=== PATIENT | female | born 1965 | race Caucasian/White ===

== ENCOUNTER 2018-04-10 15:57 | Emergency (ER) | payer MEDICAID ==
[~2018-04-10] VITALS: Ht 170.2 cm; Wt 135.0 kg
[~2018-04-10 15:57] MED LIST: HYDR-4383 PO
[2018-04-10 16:34] LABS: BASOPHILS % (AUTO) 0.3 % (0-1); EOSINOPHILS # (AUTO) 0.4 X10'3 (0-0.9); EOSINOPHILS % (AUTO) 3.1 % (0-6); HEMOGLOBIN 14.7 g/dl (12.0-16.0); LYMPHOCYTES # (AUTO) 2.1 X10'3 (1.1-4.8); LYMPHOCYTES % (AUTO) 17.8 % (21-51); MEAN CORPUSCULAR HEMOGLOBIN 27.4 PG (27.0-31.0); MEAN CORPUSCULAR VOLUME 85.8 FL (78-98); MEAN PLATELET VOLUME 9.3 FL (7.4-10.4); MONOCYTES # (AUTO) 0.7 X10'3 (0-0.9); MONOCYTES % (AUTO) 6.2 % (2-12); NEUTROPHILS # (AUTO) 8.4 X10'3 (1.8-7.7); NEUTROPHILS % (AUTO) 72.6 % (42-75); PLATELET COUNT 217 X10'3 (140-440); RED BLOOD COUNT 5.36 X10'6 (4.20-5.60); RED CELL DISTRIBUTION WIDTH 16.1 % (11.5-14.5); WHITE BLOOD COUNT 11.6 X10'3 (4.5-11.0)
[2018-04-10 16:46] LABS: URINE HCG NEGATIVE (NEG)
[2018-04-10 16:48] LABS: CLARITY,URINE CLEAR (Clear); COLOR,URINE YELLOW (Yellow); GLUCOSE, URINE NEGATIVE (Neg); KETONES,URINE NEGATIVE (Neg); LEUKOCYTE ESTERASE ,URINE NEGATIVE (Neg); NITRITES, URINE NEGATIVE (Neg); OCCULT BLOOD,URINE TRACE-INTACT (Neg); PROTEIN,URINE NEGATIVE (Neg); UA COLLECTION TYPE CLN CATCH MIDSTREAM; UROBILINOGEN,URINE 0.2 E.U/dL (0.2-1.0)
[2018-04-10 16:54] LABS: BACTERIA,URINE FEW /HPF (Neg); MUCUS STRANDS NONE SEEN /LPF (Neg); RBC,URINE 0-2 /HPF (0-2); SQUAMOUS EPITHELIAL CELL,UR MANY /LPF (FEW); WBC,URINE 0-4 /HPF (0-4)
[2018-04-10 16:58] LABS: INR 0.9 INR; PROTHROMBIN TIME 9.6 SECONDS (9.0-12.0)
[2018-04-10 17:01] LABS: ALANINE AMINOTRANSFERASE 41 U/L (12-78); ALBUMIN 3.3 G/DL (3.4-5.0); ALBUMIN/GLOBULIN RATIO 0.7 (1.1-1.5); ALKALINE PHOSPHATASE 116 IU/L (46-116); ANION GAP 11 (8-16); ASPARTATE AMINO TRANSFERASE 23 U/L (10-37); BILIRUBIN,TOTAL 0.6 MG/DL (0.1-1.0); BLOOD UREA NITROGEN 10 MG/DL (7-18); BUN/CREATININE RATIO 11.6 (6.6-38.0); CHLORIDE 101 MMOL/L (99-107); CREATININE 0.86 MG/DL (0.40-0.90); GLUCOSE 148 MG/DL (70-104); SODIUM 142 MMOL/L (135-145); TOTAL CARBON DIOXIDE 30.5 MMOL/L (24-32); TOTAL PROTEIN 7.8 G/DL (6.4-8.2); eGFR 70 ML/MIN
[2018-04-10 20:11] VITALS: BP 164/96
== END 2018-04-10 20:25 | disposition home or self-care (01) ==
LOC: ER 15:57
DX: K42.9 Umbilical hernia without obstruction or gangrene (principal); I10 Essential (primary) hypertension; F14.10 Cocaine abuse, uncomplicated; J45.909 Unspecified asthma, uncomplicated; Z90.49 Acquired absence of other specified parts of digestive tract; Z98.51 Tubal ligation status
CPT/HCPCS: 36415; 80053; 81001; 81025; 85025; 85610; 99284

== ENCOUNTER 2019-06-25 15:35 | Inpatient (IN) | payer MEDICAID ==
[~2019-06-25] VITALS: Ht 170.2 cm; Wt 117.6 kg
[~2019-06-25 15:35] MED LIST changes: +DOBUTamine/D5W 500mg/250ml premix IV ONE; +epiNEPHrine 0.1mg/ml 10ml syringe ONE; +etomidate 2mg/ml inj. ONE; +sod chloride 0.9% 10ml flush syringe IV ONE
[2019-06-25] MEDS ORDERED: furosemide 40mg/4ml inj IV ONE (15:50)
[2019-06-25] MEDS ORDERED: albuterol 2.5 MG/3 ML nebule CONTNEB PRN (15:50)
--- NOTE | 2019-06-25 16:01 | NUR ---
THOM VEGA, SISTER'S PHONE NUMBER [phone]
[2019-06-25 16:09] LABS: BASOPHILS # (AUTO) 0.1 X10'3 (0-0.2); BASOPHILS % (AUTO) 0.3 % (0-1); EOSINOPHILS % (AUTO) 0 % (0-6); HEMATOCRIT 45.6 % (35.0-45.0); HEMOGLOBIN 14.9 g/dl (12.0-16.0); LYMPHOCYTES # (AUTO) 0.5 X10'3 (1.1-4.8); LYMPHOCYTES % (AUTO) 1.7 % (21-51); MEAN CORPUSCULAR HEMOGLOBIN 28.4 PG (27.0-31.0); MEAN CORPUSCULAR HGB CONC 32.8 g/dL (33.0-36.5); MEAN CORPUSCULAR VOLUME 86.6 FL (78-98); MEAN PLATELET VOLUME 8.8 FL (7.4-10.4); MONOCYTES # (AUTO) 0.5 X10'3 (0-0.9); MONOCYTES % (AUTO) 1.5 % (2-12); NEUTROPHILS # (AUTO) 29.5 X10'3 (1.8-7.7); NEUTROPHILS % (AUTO) 96.5 % (42-75); PLATELET COUNT 199 X10'3 (140-440); RED BLOOD COUNT 5.27 X10'6 (4.20-5.60); RED CELL DISTRIBUTION WIDTH 15.7 % (11.5-14.5)
[2019-06-25 16:14] LABS: WHITE BLOOD COUNT 30.6 X10'3 (4.5-11.0)
--- NOTE | 2019-06-25 16:14 | NUR ---
Lab called a critical WBC of 30.6. Notified Dr Jenkins of result.
[2019-06-25 16:21] LABS: ABG BASE EXCESS 3.1 mmol/L (-2.0-3.0); ABG HCO3 31.7 mmol/L (22.0-26.0); ABG PCO2 (T) 65.5 mmHg (35.0-45.0); ABG PH (T) 7.303 (7.350-7.450); ABG PO2 (T) 68.4 mmHg (83-108); ALLEN'S TEST Positive; FCOHb 2.2 % (0.5-1.5); FLOW 6 L/min; FMetHb 0.2 % (0.3-1.12); FO2Hb 89.8 % (94-100); RESPIRATORY RATE (OBSERVED) 36 b/min; TOTAL HEMOGLOBIN 15.8 G/dl (12.0-16.0)
--- NOTE | 2019-06-25 16:23 | NUR ---
Dr Jenkins at bedside talking with patient's family. Patient is becoming more combative and verbal. Patient continues to be confused.
[2019-06-25 16:24] LABS: PARTIAL THROMBOPLASTIN TIME 31 SECONDS (22-32)
[2019-06-25 16:27] LABS: ALANINE AMINOTRANSFERASE 72 U/L (12-78); ALBUMIN/GLOBULIN RATIO 0.7 (1.1-1.5); ALKALINE PHOSPHATASE 93 IU/L (46-116); ANION GAP 8 (8-16); ASPARTATE AMINO TRANSFERASE 62 U/L (10-37); BILIRUBIN,TOTAL 1.8 MG/DL (0.1-1.0); BLOOD UREA NITROGEN 12 MG/DL (7-18); CALCIUM 8.6 MG/DL (8.5-10.1); CHLORIDE 97 MMOL/L (99-107); GLUCOSE 75 MG/DL (70-104); POTASSIUM 3.4 MMOL/L (3.5-5.1); SODIUM 136 MMOL/L (135-145); TOTAL CARBON DIOXIDE 31.2 MMOL/L (24-32); TOTAL PROTEIN 7.5 G/DL (6.4-8.2); eGFR 58 ML/MIN
[2019-06-25] MEDS ORDERED: succinylcholine 20mg/ml inj IV ONE ×2 (16:29→22:15)
[2019-06-25] MEDS ORDERED: normal saline 1000ML IV soln IV ONE (16:40)
[2019-06-25 16:44] LABS: ANISOCYTOSIS 1+; PLATELET ESTIMATE NORMAL; TOTAL CELLS COUNTED 100; TOXIC VACUOLATION 1+
--- NOTE | 2019-06-25 17:14 | NUR ---
Patient resting quietly. Family at bedside.
--- NOTE | 2019-06-25 17:57 | NUR ---
Patient continues to not know what is going on. Patient is not able to maintain her airway and is 75% on room air. Patient appears aggitated, moving around in bed. Unable to answer questions appropriately. Patient's family aware of need for patient to be intubated.
[2019-06-25] MEDS ORDERED: EPINEPHRINE IV SCH (18:20)
[2019-06-25] MEDS ORDERED: NORMAL SALINE IV SCH (18:20)
--- NOTE | 2019-06-25 18:44 | NUR ---
see downtime chart for CPR record.
[2019-06-25] MEDS ORDERED: propofol 1000mg/100ml bottle 100 ML IV ONE (18:48)
[2019-06-25 19:11] LABS: ABG BASE EXCESS -3.2 mmol/L (-2.0-3.0); ABG HCO3 25.4 mmol/L (22.0-26.0); ABG OXYGEN SATURATION 93.1 % (95-98); ABG PCO2 (T) 69.7 mmHg (35.0-45.0); ABG PH (T) 7.197 (7.350-7.450); FCOHb 1.8 % (0.5-1.5); FMetHb 0.2 % (0.3-1.12); FO2Hb 91.2 % (94-100); MINUTE VOLUME 8 L/min; PATIENT TEMPERATURE 40.3; PEEP 5 cm H2O; RESPIRATORY RATE 12 b/min; RESPIRATORY RATE (OBSERVED) 14 b/min; TIDAL VOLUME 450 mL; TOTAL HEMOGLOBIN 15.1 G/dl (12.0-16.0)
[2019-06-25] MEDS ORDERED: MIDAZolam 5mg/ml 2ml vial IV ONE (19:45)
[2019-06-25 19:46] LABS: URINE AMPHETAMINE SCREEN POSITIVE (Neg); URINE BARBITUATE SCREEN NEGATIVE (Neg); URINE BENZODIAZEPINES SCREEN NEGATIVE (Neg); URINE CANNABINOID SCREEN NEGATIVE (Neg); URINE COCAINE SCREEN NEGATIVE (Neg); URINE METHADONE SCREEN NEGATIVE (Neg); URINE OPIATE SCREEN NEGATIVE (Neg); URINE PHENCYCLIDINE SCREEN NEGATIVE (Neg)
[2019-06-25] MEDS ORDERED: acetaminophen 325mg rectal suppository RC ONE (19:50)
[2019-06-25] MEDS: DOPamine 400mg/D5W 250ml 250 ML IV SCH ×2 (19:54→21:18)
[2019-06-25] MEDS ORDERED: acetaminophen 650mg rectal suppository RC ONE (19:55)
[2019-06-25] MEDS: cefepime 2g/NS 100ml ADVANTAGE 100 ML IV SCH ×2 (20:07→20:38)
[2019-06-25] MEDS ORDERED: magnesium 2GM in 50ml NS 50 ML IV PRN (20:15)
[2019-06-25] MEDS ORDERED: potassium Cl 20 mEq SR tablet PO PRN ×2 (20:15)
[2019-06-25] MEDS: K, MAG and/or Phos replacement - Verify level? MC SCH (20:15)
[2019-06-25] MEDS ORDERED: magnesium 4gm in 100ml NS 100 ML IV PRN (20:15)
[2019-06-25] MEDS ORDERED: sodium phosphate inj. 30 MMOL in dextrose 5%-water 250 ML IV PRN (20:15)
[2019-06-25] MEDS ORDERED: Neutra Phos packet PO PRN (20:15)
[2019-06-25] MEDS ORDERED: sodium phosphate inj. 15 MMOL in dextrose 5%-water 150 ML IV PRN (20:15)
[2019-06-25] MEDS ORDERED: magnesium hydroxide 30ml (MOM) UD suspension PO PRN (20:15)
[2019-06-25] MEDS ORDERED: magnesium Cl slow-release 64mg tablet PO PRN (20:15)
[2019-06-25] MEDS ORDERED: acetaminophen 325mg tablet PO PRN (20:15)
[2019-06-25] MEDS: pantoprazole 40 MG vial IV SCH (20:15)
[2019-06-25 21:15] LABS: OXYGEN SATURATION (MIXED VEN) 69.9 % (60-80); PO2 MIXED VENOUS (TEMP COR) 40.9 mmHg (35-46)
[2019-06-25 21:15] LABS: ABG BASE EXCESS -0.4 mmol/L (-2.0-3.0); ABG HCO3 25.5 mmol/L (22.0-26.0); ABG PCO2 (T) 50.8 mmHg (35.0-45.0); ABG PH (T) 7.328 (7.350-7.450); ABG PO2 (T) 65.4 mmHg (83-108); FCOHb 1.7 % (0.5-1.5); FMetHb 0.2 % (0.3-1.12); FO2Hb 88.3 % (94-100); MINUTE VOLUME 13 L/min; PATIENT TEMPERATURE 39.2; PEEP 8 cm H2O; RESPIRATORY RATE 20 b/min; RESPIRATORY RATE (OBSERVED) 23 b/min; TIDAL VOLUME 500 mL; TOTAL HEMOGLOBIN 14.4 G/dl (12.0-16.0)
[2019-06-25 21:23] LABS: PARTIAL THROMBOPLASTIN TIME 32 SECONDS (22-32)
[2019-06-25 21:37] LABS: MAGNESIUM 1.5 MG/DL (1.5-2.4); PHOSPHORUS 3.7 MG/DL (2.3-4.5)
[2019-06-25 22:00] VITALS: BP 91/53
[2019-06-25] MEDS ORDERED: etomidate 2mg/ml inj. IV ONE (22:15)
[2019-06-25] MEDS ORDERED: acetaminophen 1,000mg/100ml IV 100 ML IV ONE (22:30)
[2019-06-25 22:42] LABS: BASOPHILS # (AUTO) 0.1 X10'3 (0-0.2); BASOPHILS % (AUTO) 0.2 % (0-1); EOSINOPHILS % (AUTO) 0 % (0-6); HEMATOCRIT 45.6 % (35.0-45.0); HEMOGLOBIN 14.7 g/dl (12.0-16.0); LYMPHOCYTES # (AUTO) 0.5 X10'3 (1.1-4.8); LYMPHOCYTES % (AUTO) 1.6 % (21-51); MEAN CORPUSCULAR HEMOGLOBIN 27.9 PG (27.0-31.0); MEAN CORPUSCULAR HGB CONC 32.2 g/dL (33.0-36.5); MEAN CORPUSCULAR VOLUME 86.6 FL (78-98); MEAN PLATELET VOLUME 8.9 FL (7.4-10.4); MONOCYTES # (AUTO) 0.5 X10'3 (0-0.9); MONOCYTES % (AUTO) 1.7 % (2-12); NEUTROPHILS # (AUTO) 27.2 X10'3 (1.8-7.7); NEUTROPHILS % (AUTO) 96.5 % (42-75); PLATELET COUNT 226 X10'3 (140-440); RED BLOOD COUNT 5.27 X10'6 (4.20-5.60); RED CELL DISTRIBUTION WIDTH 15.6 % (11.5-14.5)
[2019-06-25 22:52] LABS: ALANINE AMINOTRANSFERASE 164 U/L (12-78); ALBUMIN 2.6 G/DL (3.4-5.0); ALBUMIN/GLOBULIN RATIO 0.6 (1.1-1.5); ALKALINE PHOSPHATASE 88 IU/L (46-116); ANION GAP 14 (8-16); ASPARTATE AMINO TRANSFERASE 185 U/L (10-37); BLOOD UREA NITROGEN 21 MG/DL (7-18); BUN/CREATININE RATIO 10.7 (6.6-38.0); CALCIUM 7.5 MG/DL (8.5-10.1); CHLORIDE 97 MMOL/L (99-107); CREATININE 1.96 MG/DL (0.40-0.90); GLUCOSE 110 MG/DL (70-104); POTASSIUM 3.2 MMOL/L (3.5-5.1); SODIUM 137 MMOL/L (135-145); TOTAL CARBON DIOXIDE 26.1 MMOL/L (24-32); TOTAL PROTEIN 6.8 G/DL (6.4-8.2); WHITE BLOOD COUNT 28.1 X10'3 (4.5-11.0); eGFR 27 ML/MIN
[2019-06-25 22:53] LABS: PLATELET COUNT 226 X10'3 (140-440)
[2019-06-25 22:58] LABS: PARTIAL THROMBOPLASTIN TIME 32 SECONDS (22-32)
[2019-06-25 23:00] VITALS: BP 147/77
--- NOTE | 2019-06-25 23:00 | NUR ---
Patient in room CICU 2013. I have received report from JODIE Escobedo and had the opportunity to ask questions and assume patient care.
[2019-06-25 23:01] LABS: MAGNESIUM 1.4 MG/DL (1.5-2.4); PHOSPHORUS 4.1 MG/DL (2.3-4.5)
[2019-06-25 23:14] LABS: HEMOGLOBIN A1C 7.1 % (4.5-6.2)
[2019-06-26] VITALS (23 sets, daily range): BP systolic 91–140; BP diastolic 47–75
--- NOTE | 2019-06-26 00:15 | NUR ---
Spoke with JAKE Barnard, received orders to hold off on tube feeding at this time.
[2019-06-26 00:46] LABS: CLARITY,URINE SLIGHTLY CLOUDY (Clear); COLOR,URINE YELLOW (Yellow); GLUCOSE, URINE NEGATIVE (Neg); KETONES,URINE NEGATIVE (Neg); LEUKOCYTE ESTERASE ,URINE NEGATIVE (Neg); NITRITES, URINE NEGATIVE (Neg); OCCULT BLOOD,URINE LARGE (Neg); PH,URINE 7.5 (4.8-8.0); PROTEIN,URINE 100 mg/dl (Neg); UROBILINOGEN,URINE 0.2 E.U/dL (0.2-1.0)
[2019-06-26 00:52] LABS: UA COLLECTION TYPE FOLEY CATH
[2019-06-26 00:56] LABS: AMORPHOUS PHOSPHATES 2+; BACTERIA,URINE FEW /HPF (Neg); MUCUS STRANDS MODERATE /LPF (Neg); SQUAMOUS EPITHELIAL CELL,UR MODERATE /LPF (FEW); WBC,URINE 0-4 /HPF (0-4)
[2019-06-26] MEDS: hydrocortisone sod succ/PF 100mg/2ml inj. IV SCH ×4 (02:59→20:24)
[2019-06-26 03:18] LABS: BASOPHILS # (AUTO) 0.1 X10'3 (0-0.2); BASOPHILS % (AUTO) 0.3 % (0-1); EOSINOPHILS % (AUTO) 0 % (0-6); HEMATOCRIT 46.5 % (35.0-45.0); HEMOGLOBIN 15.1 g/dl (12.0-16.0); LYMPHOCYTES # (AUTO) 0.4 X10'3 (1.1-4.8); LYMPHOCYTES % (AUTO) 1.8 % (21-51); MEAN CORPUSCULAR HEMOGLOBIN 28.1 PG (27.0-31.0); MEAN CORPUSCULAR HGB CONC 32.6 g/dL (33.0-36.5); MEAN CORPUSCULAR VOLUME 86.5 FL (78-98); MONOCYTES # (AUTO) 0.5 X10'3 (0-0.9); MONOCYTES % (AUTO) 2.4 % (2-12); NEUTROPHILS # (AUTO) 21.3 X10'3 (1.8-7.7); NEUTROPHILS % (AUTO) 95.5 % (42-75); PLATELET COUNT 216 X10'3 (140-440); RED BLOOD COUNT 5.38 X10'6 (4.20-5.60); RED CELL DISTRIBUTION WIDTH 15.9 % (11.5-14.5); WHITE BLOOD COUNT 22.3 X10'3 (4.5-11.0)
[2019-06-26 03:21] LABS: PARTIAL THROMBOPLASTIN TIME 33 SECONDS (22-32)
[2019-06-26 03:23] LABS: ALANINE AMINOTRANSFERASE 292 U/L (12-78); ALBUMIN 2.5 G/DL (3.4-5.0); ALBUMIN/GLOBULIN RATIO 0.6 (1.1-1.5); ALKALINE PHOSPHATASE 84 IU/L (46-116); ANION GAP 11 (8-16); ASPARTATE AMINO TRANSFERASE 472 U/L (10-37); BILIRUBIN,TOTAL 1.8 MG/DL (0.1-1.0); BLOOD UREA NITROGEN 28 MG/DL (7-18); BUN/CREATININE RATIO 12.8 (6.6-38.0); CALCIUM 7.5 MG/DL (8.5-10.1); CHLORIDE 98 MMOL/L (99-107); CREATININE 2.18 MG/DL (0.40-0.90); GLUCOSE 103 MG/DL (70-104); POTASSIUM 3.2 MMOL/L (3.5-5.1); SODIUM 135 MMOL/L (135-145); TOTAL CARBON DIOXIDE 26.1 MMOL/L (24-32); TOTAL PROTEIN 6.5 G/DL (6.4-8.2); eGFR 24 ML/MIN
[2019-06-26 03:29] LABS: MAGNESIUM 1.4 MG/DL (1.5-2.4); PHOSPHORUS 4.5 MG/DL (2.3-4.5)
[2019-06-26] MEDS: potassium Cl 20mEq/100mL bag 100 ML IV PRN ×2 (03:38→04:33)
[2019-06-26 03:50] LABS: ABG BASE EXCESS -3.7 mmol/L (-2.0-3.0); ABG HCO3 20.9 mmol/L (22.0-26.0); ABG OXYGEN SATURATION 94.7 % (95-98); ABG PCO2 (T) 40.5 mmHg (35.0-45.0); ABG PO2 (T) 85.7 mmHg (83-108); FCOHb 0.8 % (0.5-1.5); FMetHb 0.2 % (0.3-1.12); FO2Hb 93.8 % (94-100); MINUTE VOLUME 11 L/min; PATIENT TEMPERATURE 39.4; PEEP 8 cm H2O; RESPIRATORY RATE 20 b/min; RESPIRATORY RATE (OBSERVED) 21 b/min; TIDAL VOLUME 500 mL; TOTAL HEMOGLOBIN 15.8 G/dl (12.0-16.0)
[2019-06-26] MEDS: acetaminophen 1,000mg/100ml IV 100 ML IV PRN ×2 (04:46→14:35)
[2019-06-26] MEDS: NORepinephrine 8mg/ 250ml NS 250 ML IV PRN ×2 (05:30→11:54)
--- NOTE | 2019-06-26 06:39 | NUR ---
Problems reprioritized. Patient report given, questions answered & plan of care reviewed with JODIE Jarrell.
[2019-06-26] MEDS: K, MAG and/or Phos replacement - Verify level? MC SCH (08:00)
[2019-06-26 08:21] LABS: BASOPHILS % (AUTO) 0.2 % (0-1); EOSINOPHILS % (AUTO) 0 % (0-6); HEMATOCRIT 47.2 % (35.0-45.0); HEMOGLOBIN 15.3 g/dl (12.0-16.0); LYMPHOCYTES # (AUTO) 0.4 X10'3 (1.1-4.8); LYMPHOCYTES % (AUTO) 1.4 % (21-51); MEAN CORPUSCULAR HEMOGLOBIN 27.9 PG (27.0-31.0); MEAN CORPUSCULAR HGB CONC 32.5 g/dL (33.0-36.5); MEAN CORPUSCULAR VOLUME 85.9 FL (78-98); MEAN PLATELET VOLUME 9.3 FL (7.4-10.4); MONOCYTES # (AUTO) 0.6 X10'3 (0-0.9); MONOCYTES % (AUTO) 2.2 % (2-12); NEUTROPHILS # (AUTO) 24.3 X10'3 (1.8-7.7); NEUTROPHILS % (AUTO) 96.2 % (42-75); PLATELET COUNT 235 X10'3 (140-440); RED BLOOD COUNT 5.49 X10'6 (4.20-5.60)
[2019-06-26 08:23] LABS: PLATELET COUNT 235 X10'3 (140-440); WHITE BLOOD COUNT 25.3 X10'3 (4.5-11.0)
[2019-06-26] MEDS: enoxaparin 40mg/0.4ml syringe SUBCUT SCH ×2 (08:28→20:26)
[2019-06-26] MEDS: pantoprazole 40 MG vial IV SCH (08:28)
[2019-06-26] MEDS: cefepime 2g/NS 100ml ADVANTAGE 100 ML IV SCH ×2 (08:28→18:54)
[2019-06-26 08:32] LABS: AMMONIA < 10 UMOL/L (11-32)
[2019-06-26 08:35] LABS: ALANINE AMINOTRANSFERASE 355 U/L (12-78); ALBUMIN 2.4 G/DL (3.4-5.0); ALBUMIN/GLOBULIN RATIO 0.6 (1.1-1.5); ALKALINE PHOSPHATASE 87 IU/L (46-116); ANION GAP 14 (8-16); ASPARTATE AMINO TRANSFERASE 652 U/L (10-37); BILIRUBIN,TOTAL 1.7 MG/DL (0.1-1.0); BLOOD UREA NITROGEN 31 MG/DL (7-18); BUN/CREATININE RATIO 13.9 (6.6-38.0); CALCIUM 7.5 MG/DL (8.5-10.1); CHLORIDE 99 MMOL/L (99-107); CREATININE 2.23 MG/DL (0.40-0.90); GLUCOSE 139 MG/DL (70-104); MAGNESIUM 1.6 MG/DL (1.5-2.4); POTASSIUM 3.8 MMOL/L (3.5-5.1); SODIUM 136 MMOL/L (135-145); TOTAL CARBON DIOXIDE 23.2 MMOL/L (24-32); TOTAL PROTEIN 6.5 G/DL (6.4-8.2); eGFR 23 ML/MIN
[2019-06-26 08:40] LABS: ANISOCYTOSIS 2+; MICROCYTOSIS 1+; PLATELET ESTIMATE NORMAL; TOTAL CELLS COUNTED 100
[2019-06-26 08:41] LABS: LARGE PLATELETS FEW
--- NOTE | 2019-06-26 08:45 | NUR ---
Ice removed from under armpits and groin.
[2019-06-26 08:59] LABS: LACTIC SEPSIS 1.4 MMOL/L (0.4-2.0)
[2019-06-26 09:16] LABS: PARTIAL THROMBOPLASTIN TIME 32 SECONDS (22-32)
--- NOTE | 2019-06-26 09:16 | NUR ---
3 rings given to daughter to take home, home meds verified.
[2019-06-26] MEDS ORDERED: GLIP5TAB13 PO (09:40)
[2019-06-26] MEDS ORDERED: FURO20TA4 PO (09:53)
[2019-06-26] MEDS ORDERED: AMLO5TAB4 PO (09:53)
[2019-06-26] MEDS ORDERED: AMLO5TAB PO (09:53)
[2019-06-26] MEDS ORDERED: LISI1TAB28 PO (09:53)
[2019-06-26] MEDS ORDERED: GLIP5TAB3 PO (09:53)
--- NOTE | 2019-06-26 11:05 | NUR ---
Initial: Pt admit with AMS, resp fail, LLE cellulitis, and sepsis with hx illicit drug use. Pt intubated. TF recommendations below for if prolonged intubation and to receive nutrition support. Recommendations are calculated to meet 100% of patient's estimated nutrient needs using AdjBW. Pt with low Kapil of 10. Per physical assessment pt with bilat gen 2+ edema however skin intact. Will continue to follow closely. Recommendations: 1) If to receive TF, continuous Vital High Protein with goal rate of 90 mL/hr 2) If above, additional 200 mL water flush Q4H 3) If above, prealbumin q M/TH; daily weights 4) PO diet advancement to heart healthy CHO controlled as medically indicated after extubation 5) DM education once stable; A1c 7.1 Addendum: 06/26/19 at [address] Amended: Links added.
[2019-06-26 11:14] LABS: CLARITY,URINE CLOUDY (Clear); COLOR,URINE YELLOW (Yellow); GLUCOSE, URINE NEGATIVE (Neg); KETONES,URINE TRACE mg/dl (Neg); LEUKOCYTE ESTERASE ,URINE NEGATIVE (Neg); NITRITES, URINE NEGATIVE (Neg); OCCULT BLOOD,URINE LARGE (Neg); PROTEIN,URINE 100 mg/dl (Neg); UROBILINOGEN,URINE 0.2 E.U/dL (0.2-1.0)
[2019-06-26] MEDS ORDERED: BUDE10.2 PO (11:14)
[2019-06-26] MEDS ORDERED: ALBU18HF2 PO (11:14)
[2019-06-26] MEDS ORDERED: IPRA3AMP31 NEB (11:14)
[2019-06-26 11:26] LABS: UA COLLECTION TYPE FOLEY CATH
[2019-06-26 11:31] LABS: BACTERIA,URINE FEW /HPF (Neg); MUCUS STRANDS FEW /LPF (Neg); SQUAMOUS EPITHELIAL CELL,UR FEW /LPF (FEW); WBC,URINE 0-4 /HPF (0-4)
[2019-06-26 11:32] LABS: HYALINE CASTS 0-3 /LPF (NEGATIVE); WBC CASTS 0-3 /LPF (NEGATIVE)
[2019-06-26 11:35] LABS: CREATINE KINASE 12652 U/L (26-192)
[2019-06-26 11:49] LABS: UA EOSINOPHILS NO EOS /HPF
--- NOTE | 2019-06-26 12:05 | NUR ---
Pt daughter reaffirmed that she wants limited visitors, and only the first three people on her contact list are allowed to come in. Multiple other family members have called for information. I have told them to call the Daughter, but we are not to give out her phone number. The list of people we can give information to is in the chart
--- NOTE | 2019-06-26 12:05 | NUR ---
pt repacked with ice as her temp was back up to 38.2
--- NOTE | 2019-06-26 13:00 | NUR ---
cooling blanket placed under pt as well as on top of pt
--- NOTE | 2019-06-26 15:22 | NUR ---
Telephone call to Rafaela, pt daughter, to get information for MRI screening form. No answer. Left message to call back
--- NOTE | 2019-06-26 15:45 | NUR ---
Call from pt daughter, Rafaela. I was able to get the information for the MRI form. Pt to go to MRI and CT
--- NOTE | 2019-06-26 16:00 | NUR ---
Pt transferred to [facility] from ICU bed. Pt versed and fentanyl on dial-a-flow's. Pt on portable monitor. RN, and RT with patient. Pt will go to CT when MRI is complete.
--- NOTE | 2019-06-26 18:25 | NUR ---
Pt returned from MRI/CT. Placed back on bedside monitor.
--- NOTE | 2019-06-26 18:30 | NUR ---
Patient in room CICU 2012. I have received report from Wesly FELICIANO and had the opportunity to ask questions and assume patient care. Patient back from MRI and CT, placed onto Misha-bed, connected to monitor. Patient Assessed at this time. Will continue to monitor.
--- NOTE | 2019-06-26 19:00 | NUR ---
Patients skin appearing to be mottling. Mamadou Wu ASSISTED LIVING NURSING DIRECTOR at bedside and aware.
[2019-06-26] MEDS: midazolam 100mg in NS 100ml 100 ML IV PRN (19:17)
[2019-06-26] MEDS: FENTANYL-0.9 % NACL/PF 100 ML IV PRN (19:18)
[2019-06-26] MEDS: lactobacillus rhamnosus 10,000 MMU CELLS/CAPSULE PO SCH (20:24)
--- NOTE | 2019-06-26 21:00 | NUR ---
Patients BP decreasing at this time. Levo restarted. Will continue to monitor.
[2019-06-27] VITALS (24 sets, daily range): BP systolic 93–150; BP diastolic 49–75
[2019-06-27] MEDS: cefepime 2g/NS 100ml ADVANTAGE 100 ML IV SCH ×3 (00:02→16:31)
--- NOTE | 2019-06-27 01:13 | NUR ---
No changes in condition at this time. Will continue to monitor closely.
[2019-06-27] MEDS: hydrocortisone sod succ/PF 100mg/2ml inj. IV SCH ×4 (02:00→20:29)
[2019-06-27 02:59] LABS: BASOPHILS % (AUTO) 0.1 % (0-1); EOSINOPHILS % (AUTO) 0.2 % (0-6); HEMATOCRIT 46.4 % (35.0-45.0); HEMOGLOBIN 15.1 g/dl (12.0-16.0); LYMPHOCYTES # (AUTO) 0.3 X10'3 (1.1-4.8); LYMPHOCYTES % (AUTO) 1.9 % (21-51); MEAN CORPUSCULAR HEMOGLOBIN 27.8 PG (27.0-31.0); MEAN CORPUSCULAR HGB CONC 32.4 g/dL (33.0-36.5); MEAN CORPUSCULAR VOLUME 85.9 FL (78-98); MEAN PLATELET VOLUME 9.2 FL (7.4-10.4); MONOCYTES # (AUTO) 0.6 X10'3 (0-0.9); MONOCYTES % (AUTO) 3.6 % (2-12); NEUTROPHILS % (AUTO) 94.2 % (42-75); PLATELET COUNT 241 X10'3 (140-440); RED CELL DISTRIBUTION WIDTH 16.1 % (11.5-14.5); WHITE BLOOD COUNT 18.1 X10'3 (4.5-11.0)
[2019-06-27 03:13] LABS: ALANINE AMINOTRANSFERASE 480 U/L (12-78); ALBUMIN/GLOBULIN RATIO 0.4 (1.1-1.5); ALKALINE PHOSPHATASE 89 IU/L (46-116); ANION GAP 12 (8-16); ASPARTATE AMINO TRANSFERASE 714 U/L (10-37); BLOOD UREA NITROGEN 38 MG/DL (7-18); CALCIUM 7.3 MG/DL (8.5-10.1); CHLORIDE 100 MMOL/L (99-107); CREATININE 1.46 MG/DL (0.40-0.90); GLUCOSE 177 MG/DL (70-104); MAGNESIUM 2.1 MG/DL (1.5-2.4); PARTIAL THROMBOPLASTIN TIME 34 SECONDS (22-32); PHOSPHORUS 4.7 MG/DL (2.3-4.5); POTASSIUM 3.3 MMOL/L (3.5-5.1); SODIUM 135 MMOL/L (135-145); TOTAL CARBON DIOXIDE 23.1 MMOL/L (24-32); TOTAL PROTEIN 6.5 G/DL (6.4-8.2); eGFR 38 ML/MIN
[2019-06-27] MEDS: acetaminophen 1,000mg/100ml IV 100 ML IV PRN (03:51)
[2019-06-27] MEDS: potassium Cl 20mEq/100mL bag 100 ML IV PRN ×3 (03:52→17:51)
[2019-06-27 04:35] LABS: ABG BASE EXCESS -2.4 mmol/L (-2.0-3.0); ABG HCO3 22.5 mmol/L (22.0-26.0); ABG OXYGEN SATURATION 93.9 % (95-98); ABG PH (T) 7.361 (7.350-7.450); ABG PO2 (T) 74.4 mmHg (83-108); FCOHb 0.7 % (0.5-1.5); FMetHb 0.1 % (0.3-1.12); FO2Hb 93.1 % (94-100); MINUTE VOLUME 12 L/min; PEEP 8 cm H2O; RESPIRATORY RATE 20 b/min; RESPIRATORY RATE (OBSERVED) 21 b/min; TIDAL VOLUME 500 mL; TOTAL HEMOGLOBIN 15.4 G/dl (12.0-16.0)
--- NOTE | 2019-06-27 06:27 | NUR ---
Problems reprioritized. Patient report given, questions answered & plan of care reviewed with Elisha FELICIANO.
--- NOTE | 2019-06-27 06:30 | NUR ---
Patient in room CICU 2013. I have received report from Maria Ines FELICIANO and had the opportunity to ask questions and assume patient care.
[2019-06-27] MEDS: enoxaparin 40mg/0.4ml syringe SUBCUT SCH ×2 (07:57→20:29)
[2019-06-27] MEDS: pantoprazole 40 MG vial IV SCH (07:57)
[2019-06-27] MEDS: lactobacillus rhamnosus 10,000 MMU CELLS/CAPSULE PO SCH ×2 (07:57→20:29)
[2019-06-27] MEDS: K, MAG and/or Phos replacement - Verify level? MC SCH (08:00)
[2019-06-27] MEDS ORDERED: Neutra Phos packet NG PRN (12:31)
[2019-06-27] MEDS ORDERED: magnesium hydroxide 30ml (MOM) UD suspension NG PRN (12:31)
[2019-06-27] MEDS ORDERED: potassium Cl 20 mEq SR tablet NG PRN ×2 (12:31)
--- NOTE | 2019-06-27 12:33 | NUR ---
TF Consult: NGTF to start today per MD. EN recs below given intubation needs. Will monitor for EN tolerance. Initial: Pt admit with AMS, resp fail, LLE cellulitis, and sepsis with hx illicit drug use. Pt intubated. TF recommendations below for if prolonged intubation and to receive nutrition support. Recommendations are calculated to meet 100% of patient's estimated nutrient needs using Adj IBW. Pt with low Kapil of 10. Per physical assessment pt w/ bilateral gen 2+ edema however skin intact. Will continue to follow closely. Recommendations: 1) Continuous NGTF per MD using Vital High Protein at 95mL/hr goal; to provide 2280ml fluid, 1915ml free water, 2280kcals, and 200g protein. Initiate at 20ml/hr and advance 20ml Q8 to goal as tolerated. 2) additional water flush per computer terminal operator; Na 135 3) prealbumin q /; daily weights 4) routine bowel care 5) PO diet advancement to heart healthy CHO controlled as medically indicated after extubation 6) DM education once stable; A1c 7.1 Addendum: 06/27/19 at [address] Amended: Links added.
[2019-06-27] MEDS: midazolam 100mg in NS 100ml 100 ML IV PRN (16:21)
[2019-06-27 16:47] LABS: MAGNESIUM 2.4 MG/DL (1.5-2.4); POTASSIUM 3.6 MMOL/L (3.5-5.1)
[2019-06-27] MEDS ORDERED: ibuprofen 100 MG/5 ML oral susp PO PRN (17:25)
--- NOTE | 2019-06-27 17:39 | NUR ---
Patient having runs of Hibernater, called DR. Duran to inform him of the bigeminy and the fever of 102.2 despite being on a cooling blanket, he stated to replace her potassium to 4.0 with the current protocol ordered of 20mEq and recheck after first dose, he also ordered motrin for the fever as she is at her max dose for annece Addendum: 06/27/19 at 1744 by Elisha Paulson RN acetaminophen for the 24hr. No other new orders at this time
[2019-06-27] MEDS ORDERED: ibuprofen 100 MG/5 ML oral susp NG PRN (17:41)
--- NOTE | 2019-06-27 18:24 | NUR ---
Problems reprioritized. Patient report given, questions answered & plan of care reviewed with Maria Ines FELICIANO.
--- NOTE | 2019-06-27 18:30 | NUR ---
Patient in room CICU 2013. I have received report from Elisha FELICIANO and had the opportunity to ask questions and assume patient care.
--- NOTE | 2019-06-27 18:45 | NUR ---
Temp 39.4. Cooling blanket placed under patient as well as on top. Will continue to monitor patient.
[2019-06-27] MEDS: FENTANYL-0.9 % NACL/PF 100 ML IV PRN (20:30)
--- NOTE | 2019-06-27 20:30 | NUR ---
Temperature decreasing at this time. Will continue to monitor closely.
[2019-06-27] MEDS ORDERED: dextrose 50%-water 50ml dispensing syringe IV PRN ×2 (22:10)
[2019-06-28] VITALS (24 sets, daily range): BP systolic 94–160; BP diastolic 50–99
[2019-06-28] MEDS: cefepime 2g/NS 100ml ADVANTAGE 100 ML IV SCH ×2 (00:07→07:40)
[2019-06-28] MEDS: hydrocortisone sod succ/PF 100mg/2ml inj. IV SCH ×4 (02:11→20:37)
[2019-06-28 03:10] LABS: PARTIAL THROMBOPLASTIN TIME 36 SECONDS (22-32)
[2019-06-28 03:12] LABS: ALANINE AMINOTRANSFERASE 461 U/L (12-78); ALBUMIN/GLOBULIN RATIO 0.4 (1.1-1.5); ALKALINE PHOSPHATASE 87 IU/L (46-116); ANION GAP 9 (8-16); ASPARTATE AMINO TRANSFERASE 449 U/L (10-37); BILIRUBIN,TOTAL 0.6 MG/DL (0.1-1.0); BLOOD UREA NITROGEN 44 MG/DL (7-18); BUN/CREATININE RATIO 36.4 (6.6-38.0); CALCIUM 8.1 MG/DL (8.5-10.1); CHLORIDE 105 MMOL/L (99-107); CREATININE 1.21 MG/DL (0.40-0.90); GLUCOSE 190 MG/DL (70-104); MAGNESIUM 2.5 MG/DL (1.5-2.4); POTASSIUM 3.2 MMOL/L (3.5-5.1); PREALBUMIN 8.4 MG/DL (19-36); SODIUM 138 MMOL/L (135-145); TOTAL CARBON DIOXIDE 24.3 MMOL/L (24-32); TOTAL PROTEIN 6.6 G/DL (6.4-8.2); eGFR 47 ML/MIN
[2019-06-28 03:26] LABS: BASOPHILS % (AUTO) 0.1 % (0-1); EOSINOPHILS % (AUTO) 0 % (0-6); HEMATOCRIT 45.2 % (35.0-45.0); HEMOGLOBIN 14.8 g/dl (12.0-16.0); LYMPHOCYTES # (AUTO) 0.6 X10'3 (1.1-4.8); LYMPHOCYTES % (AUTO) 3.2 % (21-51); MEAN CORPUSCULAR HGB CONC 32.7 g/dL (33.0-36.5); MEAN CORPUSCULAR VOLUME 85.7 FL (78-98); MEAN PLATELET VOLUME 9.2 FL (7.4-10.4); MONOCYTES # (AUTO) 1.1 X10'3 (0-0.9); MONOCYTES % (AUTO) 6.5 % (2-12); NEUTROPHILS # (AUTO) 15.6 X10'3 (1.8-7.7); NEUTROPHILS % (AUTO) 90.2 % (42-75); PLATELET COUNT 221 X10'3 (140-440); RED BLOOD COUNT 5.28 X10'6 (4.20-5.60); WHITE BLOOD COUNT 17.3 X10'3 (4.5-11.0)
[2019-06-28 03:51] LABS: ABG BASE EXCESS -4.3 mmol/L (-2.0-3.0); ABG HCO3 21.7 mmol/L (22.0-26.0); ABG OXYGEN SATURATION 93.7 % (95-98); ABG PCO2 (T) 42.3 mmHg (35.0-45.0); ABG PH (T) 7.326 (7.350-7.450); FCOHb 0.6 % (0.5-1.5); FMetHb 0.1 % (0.3-1.12); MINUTE VOLUME 12 L/min; PATIENT TEMPERATURE 36.6; PEEP 5 cm H2O; RESPIRATORY RATE 20 b/min; RESPIRATORY RATE (OBSERVED) 26 b/min; TOTAL HEMOGLOBIN 15.5 G/dl (12.0-16.0)
[2019-06-28] MEDS: potassium Cl 20mEq/100mL bag 100 ML IV PRN ×2 (04:23→05:38)
--- NOTE | 2019-06-28 06:25 | NUR ---
Problems reprioritized. Patient report given, questions answered & plan of care reviewed with Elisha FELICIANO.
[2019-06-28] MEDS: pantoprazole 40 MG vial IV SCH (07:41)
[2019-06-28] MEDS: enoxaparin 40mg/0.4ml syringe SUBCUT SCH ×2 (07:42→20:37)
[2019-06-28] MEDS: lactobacillus rhamnosus 10,000 MMU CELLS/CAPSULE PO SCH ×2 (07:46→20:37)
[2019-06-28] MEDS: insulin regular, human vial - multi-dose SQ SCH ×2 (07:51→21:09)
[2019-06-28] MEDS: K, MAG and/or Phos replacement - Verify level? MC SCH (08:00)
[2019-06-28] MEDS: acetaminophen 325mg tablet NG PRN ×2 (08:58→19:26)
[2019-06-28] MEDS: CefTRIAXone 2gm/D5W 50ml 50 ML IV SCH (13:49)
--- NOTE | 2019-06-28 14:24 | NUR ---
PRESSURE ULCER EDUCATION: DEFINITION: A pressure ulcer is an area of skin that breaks down when you stay in one position too long. The constant pressure against the skin reduces the blood flow to that area and the affected tissue dies. CAUSES: "Being bedridden or in a wheelchair "Fragile skin "Having a chronic condition, such as diabetes or vascular disease "Inability to move certain parts of your body without assistance "Older age "Incontinence of urine or stool SYMPTOMS: "A reddened area that DOES NOT turn white when pressed on - this can be the beginning of a pressure ulcer "A blister, deep sore or a crater - these can be advanced pressure ulcers FIRST AID: "Relieve the pressure on this area "Keep the area clean and dry "Call your primary doctor if you see any of the above symptoms "DO NOT massage the area "DO NOT use a donut shaped or ring shaped pillow- these actually interfere with the blood flow and cause complications PREVENTION: "Check for pressure ulcers everyday "Change position at least every two hours to relieve pressure "Use items that help relieve pressure- pillows, sheepskin, foam padding, and powders. "Keep skin clean and dry "Eat healthy well balanced meals "Exercise daily IF YOU SEE ANY OF THESE SYMPTOMS WHILE IN THE HOSPITAL - TELL YOUR NURSE IMMEDIATELY. IF YOU SEE ANY OF THESE SYMPTOMS WHILE AT HOME OR HAVE ANY QUESTIONS OR CONCERNS ABOUT PRESSURE ULCERS - CALL YOUR PRIMARY DOCTOR IMMEDIATELY. Addendum: 06/28/19 at 1425 by Traci Espinoza RN Amended: Links added.
[2019-06-28] MEDS: dexmedetomidin/NS 400mcg/100ml 100 ML IV SCH ×2 (16:38→16:55)
--- NOTE | 2019-06-28 18:24 | NUR ---
Problems reprioritized. Patient report given, questions answered & plan of care reviewed with Mac RN.
[2019-06-28] MEDS: NORepinephrine 8mg/ 250ml NS 250 ML IV SCH (20:51)
[2019-06-28] MEDS: mineral oil/petrolatum ophthal oint EACHEYE SCH (20:51)
[2019-06-28] MEDS: insulin glargine (Lantus) pen - multi-dose SQ SCH (21:10)
[2019-06-29] VITALS (24 sets, daily range): BP systolic 87–142; BP diastolic 49–75
[2019-06-29] MEDS: hydrocortisone sod succ/PF 100mg/2ml inj. IV SCH ×4 (01:55→20:28)
[2019-06-29] MEDS: mineral oil/petrolatum ophthal oint EACHEYE SCH ×4 (01:55→20:27)
[2019-06-29] MEDS: insulin regular, human vial - multi-dose SQ SCH ×4 (02:15→20:39)
[2019-06-29 02:51] LABS: BASOPHILS % (AUTO) 0.1 % (0-1); EOSINOPHILS % (AUTO) 0 % (0-6); HEMATOCRIT 39.8 % (35.0-45.0); HEMOGLOBIN 12.9 g/dl (12.0-16.0); LYMPHOCYTES # (AUTO) 0.9 X10'3 (1.1-4.8); LYMPHOCYTES % (AUTO) 6.4 % (21-51); MEAN CORPUSCULAR HEMOGLOBIN 27.8 PG (27.0-31.0); MEAN CORPUSCULAR HGB CONC 32.5 g/dL (33.0-36.5); MEAN CORPUSCULAR VOLUME 85.6 FL (78-98); MEAN PLATELET VOLUME 9.3 FL (7.4-10.4); MONOCYTES # (AUTO) 1.1 X10'3 (0-0.9); MONOCYTES % (AUTO) 7.7 % (2-12); NEUTROPHILS # (AUTO) 12.1 X10'3 (1.8-7.7); NEUTROPHILS % (AUTO) 85.8 % (42-75); PLATELET COUNT 210 X10'3 (140-440); RED BLOOD COUNT 4.65 X10'6 (4.20-5.60); RED CELL DISTRIBUTION WIDTH 16.3 % (11.5-14.5); WHITE BLOOD COUNT 14.1 X10'3 (4.5-11.0)
[2019-06-29 02:59] LABS: PARTIAL THROMBOPLASTIN TIME 33 SECONDS (22-32)
[2019-06-29 03:00] LABS: ALANINE AMINOTRANSFERASE 272 U/L (12-78); ALBUMIN 1.6 G/DL (3.4-5.0); ALBUMIN/GLOBULIN RATIO 0.4 (1.1-1.5); ALKALINE PHOSPHATASE 83 IU/L (46-116); ANION GAP 9 (8-16); ASPARTATE AMINO TRANSFERASE 203 U/L (10-37); BILIRUBIN,TOTAL 0.4 MG/DL (0.1-1.0); BLOOD UREA NITROGEN 47 MG/DL (7-18); BUN/CREATININE RATIO 39.8 (6.6-38.0); CALCIUM 7.8 MG/DL (8.5-10.1); CHLORIDE 106 MMOL/L (99-107); CREATININE 1.18 MG/DL (0.40-0.90); GLUCOSE 199 MG/DL (70-104); MAGNESIUM 2.4 MG/DL (1.5-2.4); PHOSPHORUS 1.6 MG/DL (2.3-4.5); POTASSIUM 3.3 MMOL/L (3.5-5.1); SODIUM 139 MMOL/L (135-145); TOTAL CARBON DIOXIDE 24.1 MMOL/L (24-32); TOTAL PROTEIN 6.1 G/DL (6.4-8.2); eGFR 48 ML/MIN
[2019-06-29 03:45] LABS: ABG BASE EXCESS -2.9 mmol/L (-2.0-3.0); ABG HCO3 21.7 mmol/L (22.0-26.0); ABG OXYGEN SATURATION 94.2 % (95-98); ABG PCO2 (T) 38.4 mmHg (35.0-45.0); ABG PH (T) 7.373 (7.350-7.450); ABG PO2 (T) 73.1 mmHg (83-108); FCOHb 0.6 % (0.5-1.5); FMetHb 0.3 % (0.3-1.12); FO2Hb 93.4 % (94-100); MINUTE VOLUME 14 L/min; PATIENT TEMPERATURE 37.5; PEEP 5 cm H2O; RESPIRATORY RATE 20 b/min; RESPIRATORY RATE (OBSERVED) 29 b/min; TOTAL HEMOGLOBIN 14.1 G/dl (12.0-16.0)
[2019-06-29] MEDS: potassium Cl 20mEq/100mL bag 100 ML IV PRN ×2 (05:11→06:25)
[2019-06-29] MEDS: dexmedetomidin/NS 400mcg/100ml 100 ML IV SCH ×3 (05:39→14:22)
[2019-06-29] MEDS ORDERED: VANCOMYCIN LEVEL IV ONE (07:30)
[2019-06-29] MEDS: CefTRIAXone 2gm/D5W 50ml 50 ML IV SCH (08:02)
[2019-06-29] MEDS: pantoprazole 40 MG vial IV SCH (08:03)
[2019-06-29] MEDS: lactobacillus rhamnosus 10,000 MMU CELLS/CAPSULE PO SCH ×2 (08:04→20:27)
[2019-06-29] MEDS: enoxaparin 40mg/0.4ml syringe SUBCUT SCH ×2 (08:04→20:29)
[2019-06-29] MEDS: K, MAG and/or Phos replacement - Verify level? MC SCH (08:05)
--- NOTE | 2019-06-29 09:00 | NUR ---
Dr. Duran by to assses patient, informed him that fentanyl and versed have been off since 0700, still no response from patient other than being tachypneic, stated to try and keep waking her up, informed him of the large amounts of liquid stool that she is having, said to place a rectal tube. no other new orders at this time
--- NOTE | 2019-06-29 18:18 | NUR ---
Problems reprioritized. Patient report given, questions answered & plan of care reviewed with Mac RN.
[2019-06-29] MEDS: FENTANYL-0.9 % NACL/PF 100 ML IV PRN (19:18)
[2019-06-29] MEDS: insulin glargine (Lantus) pen - multi-dose SQ SCH (20:40)
[2019-06-30] VITALS (24 sets, daily range): BP systolic 110–155; BP diastolic 55–79
[2019-06-30] MEDS: mineral oil/petrolatum ophthal oint EACHEYE SCH ×4 (02:35→20:41)
[2019-06-30] MEDS: dexmedetomidin/NS 400mcg/100ml 100 ML IV SCH ×3 (02:35→16:04)
[2019-06-30] MEDS: hydrocortisone sod succ/PF 100mg/2ml inj. IV SCH ×4 (02:35→20:43)
[2019-06-30] MEDS: insulin regular, human vial - multi-dose SQ SCH ×4 (02:58→21:35)
[2019-06-30 03:15] LABS: ABG OXYGEN SATURATION 94.8 % (95-98); ABG PH (T) 7.369 (7.350-7.450); ABG PO2 (T) 74.5 mmHg (83-108); FCOHb 0.3 % (0.5-1.5); FO2Hb 94.5 % (94-100); MINUTE VOLUME 14 L/min; PATIENT TEMPERATURE 36.4; PEEP 5 cm H2O; RESPIRATORY RATE 20 b/min; RESPIRATORY RATE (OBSERVED) 24 b/min; TOTAL HEMOGLOBIN 13.1 G/dl (12.0-16.0)
[2019-06-30 03:42] LABS: BASOPHILS % (AUTO) 0.3 % (0-1); EOSINOPHILS % (AUTO) 0 % (0-6); HEMATOCRIT 38.8 % (35.0-45.0); HEMOGLOBIN 12.4 g/dl (12.0-16.0); LYMPHOCYTES # (AUTO) 1.1 X10'3 (1.1-4.8); LYMPHOCYTES % (AUTO) 7.4 % (21-51); MEAN CORPUSCULAR HEMOGLOBIN 27.9 PG (27.0-31.0); MEAN CORPUSCULAR HGB CONC 32.1 g/dL (33.0-36.5); MEAN CORPUSCULAR VOLUME 86.8 FL (78-98); MEAN PLATELET VOLUME 9.8 FL (7.4-10.4); MONOCYTES # (AUTO) 1.2 X10'3 (0-0.9); MONOCYTES % (AUTO) 7.9 % (2-12); NEUTROPHILS % (AUTO) 84.4 % (42-75); PLATELET COUNT 240 X10'3 (140-440); RED BLOOD COUNT 4.47 X10'6 (4.20-5.60); RED CELL DISTRIBUTION WIDTH 16.8 % (11.5-14.5); WHITE BLOOD COUNT 15.4 X10'3 (4.5-11.0)
[2019-06-30 03:48] LABS: PARTIAL THROMBOPLASTIN TIME 27 SECONDS (22-32)
[2019-06-30 03:50] LABS: ALANINE AMINOTRANSFERASE 228 U/L (12-78); ALBUMIN 1.7 G/DL (3.4-5.0); ALBUMIN/GLOBULIN RATIO 0.4 (1.1-1.5); ALKALINE PHOSPHATASE 86 IU/L (46-116); ANION GAP 13 (8-16); ASPARTATE AMINO TRANSFERASE 137 U/L (10-37); BILIRUBIN,TOTAL 0.4 MG/DL (0.1-1.0); BLOOD UREA NITROGEN 46 MG/DL (7-18); BUN/CREATININE RATIO 46.9 (6.6-38.0); CALCIUM 8.2 MG/DL (8.5-10.1); CHLORIDE 108 MMOL/L (99-107); CREATININE 0.98 MG/DL (0.40-0.90); GLUCOSE 167 MG/DL (70-104); MAGNESIUM 2.3 MG/DL (1.5-2.4); PHOSPHORUS 1.8 MG/DL (2.3-4.5); SODIUM 144 MMOL/L (135-145); TOTAL CARBON DIOXIDE 23.3 MMOL/L (24-32); TOTAL PROTEIN 6.3 G/DL (6.4-8.2); eGFR 60 ML/MIN
[2019-06-30 03:52] LABS: POTASSIUM 2.8 MMOL/L (3.5-5.1)
[2019-06-30] MEDS: potassium Cl 20mEq/100mL bag 100 ML IV PRN ×6 (04:10→17:17)
[2019-06-30 04:51] LABS: TOTAL CELLS COUNTED 100
[2019-06-30 04:52] LABS: ANISOCYTOSIS 1+; PLATELET ESTIMATE NORMAL
[2019-06-30 04:53] LABS: TOXIC GRANULATION 1+; TOXIC VACUOLATION FEW
--- NOTE | 2019-06-30 06:30 | NUR ---
RN Note -Pt is opening eyes spontaneously, but not following commands or showing any purposeful movements.
[2019-06-30] MEDS: pantoprazole 40 MG vial IV SCH (07:45)
[2019-06-30] MEDS: lactobacillus rhamnosus 10,000 MMU CELLS/CAPSULE PO SCH (07:45)
[2019-06-30] MEDS: CefTRIAXone 2gm/D5W 50ml 50 ML IV SCH (07:45)
[2019-06-30] MEDS: K, MAG and/or Phos replacement - Verify level? MC SCH (08:00)
[2019-06-30] MEDS ORDERED: methylnaltrexone br 12mg/0.6ml inj***SubQ only SQ SCH (08:00)
[2019-06-30] MEDS: enoxaparin 40mg/0.4ml syringe SUBCUT SCH ×2 (08:22→20:42)
[2019-06-30] MEDS ORDERED: lactobacillus rhamnosus 10,000 MMU CELLS/CAPSULE NG SCH (11:25)
[2019-06-30] MEDS ORDERED: Neutra Phos packet CORPAK PRN (11:30)
[2019-06-30] MEDS ORDERED: ibuprofen 100 MG/5 ML oral susp CORPAK PRN (11:30)
[2019-06-30] MEDS ORDERED: magnesium hydroxide 30ml (MOM) UD suspension CORPAK PRN (11:30)
[2019-06-30] MEDS ORDERED: potassium Cl 20 mEq SR tablet CORPAK PRN ×2 (11:31)
--- NOTE | 2019-06-30 11:35 | NUR ---
Reassessment: Pt tolerating TF at goal. Fluid positive to d/c IV fluids today per MD. No significant BM yet this admit w/ versed off and still receiving fentanyl per RN. Small liquid BM this AM w/ relistor ordered. Will monitor for additional bowel care needs. Recommendations: 1) Continuous NGTF per MD using Vital High Protein at 95mL/hr goal; to provide 2280ml fluid, 1915ml free water, 2280kcals, and 200g protein. Initiate at 20ml/hr and advance 20ml Q8 to goal as tolerated. 2) additional water flush per trap puller; Na 135 3) prealbumin q /; daily weights 4) routine bowel care 5) PO diet advancement to heart healthy CHO controlled as medically indicated after extubation 6) DM education once stable; A1c 7.1 Addendum: 06/30/19 at [address] Amended: Links added.
[2019-06-30] MEDS: FENTANYL-0.9 % NACL/PF 100 ML IV PRN (12:22)
[2019-06-30] MEDS: dexamethasone 4mg/ml inj IV SCH ×2 (14:16→21:40)
[2019-06-30] MEDS: POTASSIUM BICARB 20meq eff tab 20 MEQ TABLET.EFF PO SCH ×2 (15:35→20:43)
[2019-06-30] MEDS: lactobacillus rhamnosus 10,000 MMU CELLS/CAPSULE CORPAK SCH (20:00)
[2019-06-30] MEDS: NORepinephrine 8mg/ 250ml NS 250 ML IV SCH (20:15)
[2019-06-30] MEDS: furosemide 40mg/4ml inj IV SCH (20:44)
[2019-06-30] MEDS: insulin glargine (Lantus) pen - multi-dose SQ SCH (21:33)
[2019-07-01] VITALS (22 sets, daily range): BP systolic 100–156; BP diastolic 54–95
[2019-07-01] MEDS: mineral oil/petrolatum ophthal oint EACHEYE SCH ×4 (02:00→20:16)
[2019-07-01] MEDS: dexamethasone 4mg/ml inj IV SCH ×4 (02:43→20:16)
[2019-07-01] MEDS: hydrocortisone sod succ/PF 100mg/2ml inj. IV SCH ×4 (02:43→20:16)
[2019-07-01] MEDS: insulin regular, human vial - multi-dose SQ SCH ×4 (02:47→20:50)
[2019-07-01] MEDS: dexmedetomidin/NS 400mcg/100ml 100 ML IV SCH ×4 (02:51→17:25)
[2019-07-01 03:06] LABS: ABG BASE EXCESS -3.2 mmol/L (-2.0-3.0); ABG HCO3 20.6 mmol/L (22.0-26.0); ABG PH (T) 7.402 (7.350-7.450); ABG PO2 (T) 74.7 mmHg (83-108); FCOHb 0.5 % (0.5-1.5); FMetHb 0.1 % (0.3-1.12); FO2Hb 94.4 % (94-100); MINUTE VOLUME 16 L/min; PATIENT TEMPERATURE 37.5; PEEP 5 cm H2O; RESPIRATORY RATE 16 b/min; RESPIRATORY RATE (OBSERVED) 32 b/min; TOTAL HEMOGLOBIN 13.5 G/dl (12.0-16.0)
[2019-07-01 05:20] LABS: ALANINE AMINOTRANSFERASE 228 U/L (12-78); ALBUMIN 1.9 G/DL (3.4-5.0); ALBUMIN/GLOBULIN RATIO 0.4 (1.1-1.5); ALKALINE PHOSPHATASE 98 IU/L (46-116); ANION GAP 13 (8-16); ASPARTATE AMINO TRANSFERASE 116 U/L (10-37); BILIRUBIN,TOTAL 0.5 MG/DL (0.1-1.0); BLOOD UREA NITROGEN 48 MG/DL (7-18); BUN/CREATININE RATIO 49.5 (6.6-38.0); CALCIUM 8.4 MG/DL (8.5-10.1); CHLORIDE 109 MMOL/L (99-107); CREATININE 0.97 MG/DL (0.40-0.90); GLUCOSE 205 MG/DL (70-104); PHOSPHORUS 2.4 MG/DL (2.3-4.5); POTASSIUM 3.8 MMOL/L (3.5-5.1); SODIUM 145 MMOL/L (135-145); TOTAL CARBON DIOXIDE 23.3 MMOL/L (24-32); TOTAL PROTEIN 6.5 G/DL (6.4-8.2); eGFR 60 ML/MIN
[2019-07-01 06:16] LABS: BASOPHILS # (AUTO) 0.1 X10'3 (0-0.2); BASOPHILS % (AUTO) 0.5 % (0-1); EOSINOPHILS % (AUTO) 0.1 % (0-6); HEMATOCRIT 39.2 % (35.0-45.0); HEMOGLOBIN 12.6 g/dl (12.0-16.0); LYMPHOCYTES # (AUTO) 1.1 X10'3 (1.1-4.8); LYMPHOCYTES % (AUTO) 7.5 % (21-51); MEAN CORPUSCULAR HEMOGLOBIN 27.6 PG (27.0-31.0); MEAN CORPUSCULAR HGB CONC 32.1 g/dL (33.0-36.5); MEAN PLATELET VOLUME 9.8 FL (7.4-10.4); MONOCYTES % (AUTO) 6.9 % (2-12); NEUTROPHILS # (AUTO) 12.9 X10'3 (1.8-7.7); PLATELET COUNT 330 X10'3 (140-440); RED BLOOD COUNT 4.55 X10'6 (4.20-5.60); RED CELL DISTRIBUTION WIDTH 17.1 % (11.5-14.5); WHITE BLOOD COUNT 15.2 X10'3 (4.5-11.0)
[2019-07-01 06:45] LABS: PARTIAL THROMBOPLASTIN TIME 22 SECONDS (22-32)
[2019-07-01 07:23] LABS: TOTAL CELLS COUNTED 100
[2019-07-01 07:28] LABS: PLATELET ESTIMATE NORMAL
[2019-07-01 07:30] LABS: HYPOGRANULAR PLATELETS FEW; LARGE PLATELETS FEW
[2019-07-01] MEDS ORDERED: VANCOMYCIN LEVEL IV ONE (07:30)
[2019-07-01 07:34] LABS: TOXIC GRANULATION 1+; TOXIC VACUOLATION FEW
[2019-07-01 07:35] LABS: ANISOCYTOSIS 1+
[2019-07-01] MEDS: K, MAG and/or Phos replacement - Verify level? MC SCH (08:00)
[2019-07-01] MEDS: lactobacillus rhamnosus 10,000 MMU CELLS/CAPSULE CORPAK SCH ×2 (09:03→20:16)
[2019-07-01] MEDS: furosemide 40mg/4ml inj IV SCH ×2 (09:04→20:16)
[2019-07-01] MEDS: POTASSIUM BICARB 20meq eff tab 20 MEQ TABLET.EFF PO SCH ×3 (09:04→20:18)
[2019-07-01] MEDS: pantoprazole 40 MG vial IV SCH (09:04)
[2019-07-01] MEDS: CefTRIAXone 2gm/D5W 50ml 50 ML IV SCH (09:05)
[2019-07-01] MEDS: enoxaparin 40mg/0.4ml syringe SUBCUT SCH ×2 (09:05→20:15)
[2019-07-01] MEDS: FENTANYL-0.9 % NACL/PF 100 ML IV PRN (10:05)
--- NOTE | 2019-07-01 15:45 | NUR ---
Patient back from MRI
--- NOTE | 2019-07-01 16:00 | NUR ---
Patient being brought to MRI for scan of head.
--- NOTE | 2019-07-01 18:45 | NUR ---
Patient in room CICU 2013. I have received report from JODIE Tavares and had the opportunity to ask questions and assume patient care.
--- NOTE | 2019-07-01 19:16 | NUR ---
Problems reprioritized. Patient report given, questions answered & plan of care reviewed with Alyssa FELICIANO.
[2019-07-01] MEDS: insulin glargine (Lantus) pen - multi-dose SQ SCH (20:51)
--- NOTE | 2019-07-01 21:00 | NUR ---
Actual Lantus dose was 19 units, not 9. The med has since been d/c'd and will not allow a change.
[2019-07-02] VITALS (24 sets, daily range): BP systolic 108–162; BP diastolic 49–98
[2019-07-02] MEDS: dexamethasone 4mg/ml inj IV SCH ×4 (02:34→20:59)
[2019-07-02] MEDS: mineral oil/petrolatum ophthal oint EACHEYE SCH ×4 (02:34→20:59)
[2019-07-02] MEDS: hydrocortisone sod succ/PF 100mg/2ml inj. IV SCH ×4 (02:34→20:58)
[2019-07-02] MEDS: dexmedetomidin/NS 400mcg/100ml 100 ML IV SCH ×4 (02:35→22:25)
[2019-07-02] MEDS: insulin regular, human vial - multi-dose SQ SCH ×4 (02:39→21:18)
[2019-07-02 03:36] LABS: ABG BASE EXCESS -2.2 mmol/L (-2.0-3.0); ABG HCO3 21.2 mmol/L (22.0-26.0); ABG OXYGEN SATURATION 94.9 % (95-98); ABG PH (T) 7.428 (7.350-7.450); ABG PO2 (T) 74.8 mmHg (83-108); FCOHb 0.5 % (0.5-1.5); FMetHb 0.3 % (0.3-1.12); FO2Hb 94.1 % (94-100); MINUTE VOLUME 16 L/min; PATIENT TEMPERATURE 37.3; PEEP 5 cm H2O; RESPIRATORY RATE 20 b/min; RESPIRATORY RATE (OBSERVED) 33 b/min; TOTAL HEMOGLOBIN 13.3 G/dl (12.0-16.0)
[2019-07-02 03:51] LABS: PARTIAL THROMBOPLASTIN TIME 22 SECONDS (22-32)
[2019-07-02 03:58] LABS: ALANINE AMINOTRANSFERASE 237 U/L (12-78); ALBUMIN 2.1 G/DL (3.4-5.0); ALBUMIN/GLOBULIN RATIO 0.5 (1.1-1.5); ALKALINE PHOSPHATASE 88 IU/L (46-116); ANION GAP 10 (8-16); ASPARTATE AMINO TRANSFERASE 100 U/L (10-37); BILIRUBIN,TOTAL 0.5 MG/DL (0.1-1.0); BLOOD UREA NITROGEN 55 MG/DL (7-18); CALCIUM 8.7 MG/DL (8.5-10.1); CHLORIDE 113 MMOL/L (99-107); GLUCOSE 233 MG/DL (70-104); PHOSPHORUS 3.7 MG/DL (2.3-4.5); POTASSIUM 3.2 MMOL/L (3.5-5.1); SODIUM 149 MMOL/L (135-145); TOTAL CARBON DIOXIDE 25.6 MMOL/L (24-32); TOTAL PROTEIN 6.6 G/DL (6.4-8.2); eGFR 58 ML/MIN
[2019-07-02 04:46] LABS: BASOPHILS # (AUTO) 0.1 X10'3 (0-0.2); BASOPHILS % (AUTO) 0.3 % (0-1); EOSINOPHILS % (AUTO) 0 % (0-6); HEMATOCRIT 39.9 % (35.0-45.0); HEMOGLOBIN 12.9 g/dl (12.0-16.0); LYMPHOCYTES # (AUTO) 1.5 X10'3 (1.1-4.8); LYMPHOCYTES % (AUTO) 7.7 % (21-51); MEAN CORPUSCULAR HEMOGLOBIN 27.6 PG (27.0-31.0); MEAN CORPUSCULAR HGB CONC 32.2 g/dL (33.0-36.5); MEAN CORPUSCULAR VOLUME 85.8 FL (78-98); MEAN PLATELET VOLUME 10.1 FL (7.4-10.4); MONOCYTES # (AUTO) 1.6 X10'3 (0-0.9); MONOCYTES % (AUTO) 8.4 % (2-12); NEUTROPHILS # (AUTO) 15.8 X10'3 (1.8-7.7); NEUTROPHILS % (AUTO) 83.6 % (42-75); PLATELET COUNT 496 X10'3 (140-440); RED BLOOD COUNT 4.66 X10'6 (4.20-5.60); RED CELL DISTRIBUTION WIDTH 16.6 % (11.5-14.5); WHITE BLOOD COUNT 18.9 X10'3 (4.5-11.0)
[2019-07-02 04:58] LABS: NUCLEATED RED BLOOD CELLS 2 /100WBC (0-0); PLATELET ESTIMATE INCREASED; TOTAL CELLS COUNTED 100
[2019-07-02 05:02] LABS: ANISOCYTOSIS 1+; HYPOGRANULAR PLATELETS MODERATE; LARGE PLATELETS FEW; TOXIC GRANULATION 1+; TOXIC VACUOLATION FEW
[2019-07-02] MEDS: potassium Cl 20mEq/100mL bag 100 ML IV PRN ×2 (05:11→13:47)
--- NOTE | 2019-07-02 06:30 | NUR ---
Problems reprioritized. Patient report given, questions answered & plan of care reviewed with JODIE Adams.
[2019-07-02] MEDS: FENTANYL-0.9 % NACL/PF 100 ML IV PRN ×2 (06:39→17:58)
[2019-07-02] MEDS: K, MAG and/or Phos replacement - Verify level? MC SCH (08:00)
[2019-07-02] MEDS: lactobacillus rhamnosus 10,000 MMU CELLS/CAPSULE CORPAK SCH ×2 (08:53→20:58)
[2019-07-02] MEDS: POTASSIUM BICARB 20meq eff tab 20 MEQ TABLET.EFF PO SCH (08:53)
[2019-07-02] MEDS: furosemide 40mg/4ml inj IV SCH ×2 (08:55→20:59)
[2019-07-02] MEDS: enoxaparin 40mg/0.4ml syringe SUBCUT SCH ×2 (08:55→20:58)
[2019-07-02] MEDS: pantoprazole 40 MG vial IV SCH (09:04)
[2019-07-02] MEDS: CefTRIAXone 2gm/D5W 50ml 50 ML IV SCH (09:09)
[2019-07-02] MEDS: POTASSIUM BICARB 20meq eff tab 20 MEQ TABLET.EFF CORPAK SCH ×2 (13:41→20:58)
--- NOTE | 2019-07-02 18:45 | NUR ---
Patient in room CICU 2013. I have received report from JODIE Adams and had the opportunity to ask questions and assume patient care.
[2019-07-02] MEDS ORDERED: insulin glargine (Lantus) pen - multi-dose SQ SCH (21:00)
[2019-07-02] MEDS: insulin glargine (Lantus) pen - multi-dose SQ SCH (21:19)
[2019-07-03] VITALS (24 sets, daily range): BP systolic 111–176; BP diastolic 50–84
[2019-07-03] MEDS: mineral oil/petrolatum ophthal oint EACHEYE SCH ×4 (02:31→20:01)
[2019-07-03] MEDS: hydrocortisone sod succ/PF 100mg/2ml inj. IV SCH ×4 (02:31→19:52)
[2019-07-03] MEDS: dexamethasone 4mg/ml inj IV SCH ×4 (02:31→19:51)
[2019-07-03] MEDS: insulin regular, human vial - multi-dose SQ SCH ×4 (02:44→20:07)
[2019-07-03 02:58] LABS: BASOPHILS # (AUTO) 0.1 X10'3 (0-0.2); BASOPHILS % (AUTO) 0.4 % (0-1); EOSINOPHILS % (AUTO) 0 % (0-6); HEMATOCRIT 38.5 % (35.0-45.0); HEMOGLOBIN 12.5 g/dl (12.0-16.0); LYMPHOCYTES # (AUTO) 1.5 X10'3 (1.1-4.8); LYMPHOCYTES % (AUTO) 7.1 % (21-51); MEAN CORPUSCULAR HEMOGLOBIN 27.4 PG (27.0-31.0); MEAN CORPUSCULAR HGB CONC 32.4 g/dL (33.0-36.5); MEAN CORPUSCULAR VOLUME 84.6 FL (78-98); MEAN PLATELET VOLUME 8.6 FL (7.4-10.4); MONOCYTES # (AUTO) 2.1 X10'3 (0-0.9); MONOCYTES % (AUTO) 9.5 % (2-12); NEUTROPHILS # (AUTO) 17.9 X10'3 (1.8-7.7); PLATELET COUNT 564 X10'3 (140-440); RED BLOOD COUNT 4.55 X10'6 (4.20-5.60); RED CELL DISTRIBUTION WIDTH 15.9 % (11.5-14.5); WHITE BLOOD COUNT 21.5 X10'3 (4.5-11.0)
[2019-07-03 03:00] LABS: ABG BASE EXCESS 1.6 mmol/L (-2.0-3.0); ABG HCO3 24.2 mmol/L (22.0-26.0); ABG OXYGEN SATURATION 93.3 % (95-98); ABG PCO2 (T) 32.4 mmHg (35.0-45.0); ABG PH (T) 7.492 (7.350-7.450); ABG PO2 (T) 70.6 mmHg (83-108); FCOHb 0.4 % (0.5-1.5); FO2Hb 92.9 % (94-100); MINUTE VOLUME 15 L/min; PATIENT TEMPERATURE 37.5; PEEP 5 cm H2O; RESPIRATORY RATE 20 b/min; RESPIRATORY RATE (OBSERVED) 34 b/min; TOTAL HEMOGLOBIN 13.2 G/dl (12.0-16.0)
[2019-07-03 03:08] LABS: PARTIAL THROMBOPLASTIN TIME 22 SECONDS (22-32)
[2019-07-03 03:19] LABS: ALANINE AMINOTRANSFERASE 208 U/L (12-78); ALBUMIN/GLOBULIN RATIO 0.5 (1.1-1.5); ALKALINE PHOSPHATASE 75 IU/L (46-116); ANION GAP 9 (8-16); ASPARTATE AMINO TRANSFERASE 73 U/L (10-37); BILIRUBIN,TOTAL 0.5 MG/DL (0.1-1.0); BLOOD UREA NITROGEN 49 MG/DL (7-18); BUN/CREATININE RATIO 49.5 (6.6-38.0); CALCIUM 8.3 MG/DL (8.5-10.1); CHLORIDE 112 MMOL/L (99-107); CREATININE 0.99 MG/DL (0.40-0.90); GLUCOSE 190 MG/DL (70-104); PHOSPHORUS 4.3 MG/DL (2.3-4.5); POTASSIUM 3.7 MMOL/L (3.5-5.1); SODIUM 149 MMOL/L (135-145); TOTAL CARBON DIOXIDE 27.8 MMOL/L (24-32); TOTAL PROTEIN 6.2 G/DL (6.4-8.2); eGFR 59 ML/MIN
[2019-07-03] MEDS: FENTANYL-0.9 % NACL/PF 100 ML IV PRN (03:21)
[2019-07-03 03:50] LABS: TOTAL CELLS COUNTED 100
[2019-07-03 03:51] LABS: ANISOCYTOSIS 1+; LARGE PLATELETS FEW; PLATELET ESTIMATE INCREASED
--- NOTE | 2019-07-03 06:28 | NUR ---
Problems reprioritized. Patient report given, questions answered & plan of care reviewed with JODIE Vigil
[2019-07-03] MEDS: CefTRIAXone 2gm/D5W 50ml 50 ML IV SCH (07:37)
[2019-07-03] MEDS: furosemide 40mg/4ml inj IV SCH ×2 (07:39→19:51)
[2019-07-03] MEDS: POTASSIUM BICARB 20meq eff tab 20 MEQ TABLET.EFF CORPAK SCH ×3 (07:39→20:02)
[2019-07-03] MEDS: pantoprazole 40 MG vial IV SCH (07:39)
[2019-07-03] MEDS: lactobacillus rhamnosus 10,000 MMU CELLS/CAPSULE CORPAK SCH ×2 (07:39→19:52)
[2019-07-03] MEDS: enoxaparin 40mg/0.4ml syringe SUBCUT SCH ×2 (07:40→19:52)
[2019-07-03] MEDS: K, MAG and/or Phos replacement - Verify level? MC SCH (08:00)
--- NOTE | 2019-07-03 10:33 | NUR ---
Reassessment: Pt remains intubated and tolerating TF with GRV WNL. Patient's wt fluctuates however is currently stable with admit, likely r/t changes in fluid status. LBM 07/02 documented as moderate. No further nutrition intervention warranted at this time. Will continue to follow. Recommendations: 1) Continuous NGTF per MD using Vital High Protein at 95mL/hr goal; to provide 2280ml fluid, 1915ml free water, 2280kcals, and 200g protein. Initiate at 20ml/hr and advance 20ml Q8 to goal as tolerated. 2) additional water flush per coin rolling machine operator; Na 135 3) prealbumin q /; daily weights 4) routine bowel care 5) PO diet advancement to heart healthy CHO controlled as medically indicated after extubation 6) DM education once stable; A1c 7.1 Addendum: 07/03/19 at [address] Amended: Links added.
[2019-07-03] MEDS: dexmedetomidin/NS 400mcg/100ml 100 ML IV SCH ×3 (12:24→20:10)
--- NOTE | 2019-07-03 18:30 | NUR ---
Patient in room CICU 2013. I have received report from Jose Juan FELICIANO and had the opportunity to ask questions and assume patient care.
[2019-07-03] MEDS: insulin glargine (Lantus) pen - multi-dose SQ SCH (20:08)
[2019-07-04] VITALS (24 sets, daily range): BP systolic 113–167; BP diastolic 49–87
[2019-07-04] MEDS: dexamethasone 4mg/ml inj IV SCH ×4 (01:46→19:41)
[2019-07-04] MEDS: hydrocortisone sod succ/PF 100mg/2ml inj. IV SCH ×4 (01:46→19:42)
[2019-07-04] MEDS: mineral oil/petrolatum ophthal oint EACHEYE SCH ×4 (01:47→19:43)
[2019-07-04] MEDS: insulin regular, human vial - multi-dose SQ SCH ×4 (01:57→20:29)
[2019-07-04 03:01] LABS: BASOPHILS # (AUTO) 0.2 X10'3 (0-0.2); BASOPHILS % (AUTO) 0.9 % (0-1); EOSINOPHILS % (AUTO) 0 % (0-6); HEMATOCRIT 39.1 % (35.0-45.0); HEMOGLOBIN 12.5 g/dl (12.0-16.0); LYMPHOCYTES # (AUTO) 1.4 X10'3 (1.1-4.8); LYMPHOCYTES % (AUTO) 6.5 % (21-51); MEAN CORPUSCULAR HEMOGLOBIN 27.7 PG (27.0-31.0); MEAN CORPUSCULAR VOLUME 86.4 FL (78-98); MONOCYTES # (AUTO) 1.6 X10'3 (0-0.9); MONOCYTES % (AUTO) 7.5 % (2-12); NEUTROPHILS # (AUTO) 17.8 X10'3 (1.8-7.7); NEUTROPHILS % (AUTO) 85.1 % (42-75); PLATELET COUNT 599 X10'3 (140-440); RED BLOOD COUNT 4.53 X10'6 (4.20-5.60); RED CELL DISTRIBUTION WIDTH 16.4 % (11.5-14.5); WHITE BLOOD COUNT 20.9 X10'3 (4.5-11.0)
[2019-07-04 03:11] LABS: ALANINE AMINOTRANSFERASE 183 U/L (12-78); ALBUMIN 2.1 G/DL (3.4-5.0); ALBUMIN/GLOBULIN RATIO 0.5 (1.1-1.5); ALKALINE PHOSPHATASE 72 IU/L (46-116); ANION GAP 10 (8-16); ASPARTATE AMINO TRANSFERASE 52 U/L (10-37); BILIRUBIN,TOTAL 0.6 MG/DL (0.1-1.0); BLOOD UREA NITROGEN 51 MG/DL (7-18); BUN/CREATININE RATIO 54.3 (6.6-38.0); CALCIUM 8.4 MG/DL (8.5-10.1); CHLORIDE 111 MMOL/L (99-107); CREATININE 0.94 MG/DL (0.40-0.90); GLUCOSE 211 MG/DL (70-104); PHOSPHORUS 3.9 MG/DL (2.3-4.5); POTASSIUM 3.7 MMOL/L (3.5-5.1); SODIUM 150 MMOL/L (135-145); TOTAL CARBON DIOXIDE 28.7 MMOL/L (24-32); TOTAL PROTEIN 6.3 G/DL (6.4-8.2); eGFR 63 ML/MIN
[2019-07-04 03:20] LABS: PARTIAL THROMBOPLASTIN TIME 21 SECONDS (22-32)
[2019-07-04] MEDS: dexmedetomidin/NS 400mcg/100ml 100 ML IV SCH ×3 (03:25→17:55)
[2019-07-04 03:42] LABS: ANISOCYTOSIS 1+; LARGE PLATELETS FEW; PLATELET ESTIMATE INCREASED; TOTAL CELLS COUNTED 100
[2019-07-04 03:50] LABS: ABG BASE EXCESS 2.1 mmol/L (-2.0-3.0); ABG HCO3 25.7 mmol/L (22.0-26.0); ABG OXYGEN SATURATION 93.7 % (95-98); ABG PCO2 (T) 37.5 mmHg (35.0-45.0); ABG PH (T) 7.455 (7.350-7.450); ABG PO2 (T) 69.3 mmHg (83-108); FCOHb 0.8 % (0.5-1.5); FMetHb 0.3 % (0.3-1.12); FO2Hb 92.7 % (94-100); MINUTE VOLUME 14 L/min; PATIENT TEMPERATURE 37.7; PEEP 5 cm H2O; RESPIRATORY RATE 18 b/min; RESPIRATORY RATE (OBSERVED) 31 b/min; TOTAL HEMOGLOBIN 13.6 G/dl (12.0-16.0)
[2019-07-04] MEDS: CefTRIAXone 2gm/D5W 50ml 50 ML IV SCH (07:03)
[2019-07-04] MEDS: lactobacillus rhamnosus 10,000 MMU CELLS/CAPSULE CORPAK SCH ×2 (07:04→19:41)
[2019-07-04] MEDS: pantoprazole 40 MG vial IV SCH (07:04)
[2019-07-04] MEDS: acetaminophen 325mg tablet CORPAK PRN ×2 (07:04→08:18)
[2019-07-04] MEDS: furosemide 40mg/4ml inj IV SCH ×2 (07:04→19:42)
[2019-07-04] MEDS: POTASSIUM BICARB 20meq eff tab 20 MEQ TABLET.EFF CORPAK SCH ×3 (07:04→20:24)
[2019-07-04] MEDS: enoxaparin 40mg/0.4ml syringe SUBCUT SCH ×2 (07:05→19:42)
[2019-07-04] MEDS: K, MAG and/or Phos replacement - Verify level? MC SCH (08:18)
[2019-07-04] MEDS: FENTANYL-0.9 % NACL/PF 100 ML IV PRN (12:04)
--- NOTE | 2019-07-04 16:39 | NUR ---
PT IS BITING HER OWN TONGUE. ANCHOR FAST WITH A BITE BLOCK WAS PLACED WHEN INTUBATED. ATTEMPTED TO MOVE ET TUBE SO THAT PT WOULD NO LONGER BE BITING ON HER TONGUE BUT UNABLE TO REPOSITION PT'S TONGUE. PER MD JODIE MADE AWARE. Addendum: 07/04/19 at 1643 by Lindsey Bose RT Amended: Links added.
--- NOTE | 2019-07-04 18:30 | NUR ---
Patient in room CICU 2013. I have received report from Karly FELICIANO and had the opportunity to ask questions and assume patient care.
[2019-07-04] MEDS ORDERED: VANCOMYCIN LEVEL IV ONE (19:30)
[2019-07-04] MEDS: insulin glargine (Lantus) pen - multi-dose SQ SCH (20:29)
[2019-07-05] VITALS (24 sets, daily range): BP systolic 100–172; BP diastolic 53–86
[2019-07-05] MEDS: dexmedetomidin/NS 400mcg/100ml 100 ML IV SCH ×4 (01:10→22:55)
[2019-07-05] MEDS: hydrocortisone sod succ/PF 100mg/2ml inj. IV SCH ×4 (01:58→20:09)
[2019-07-05] MEDS: dexamethasone 4mg/ml inj IV SCH ×4 (01:58→20:08)
[2019-07-05] MEDS: FENTANYL-0.9 % NACL/PF 100 ML IV PRN (01:58)
[2019-07-05] MEDS: insulin regular, human vial - multi-dose SQ SCH ×4 (02:01→20:34)
[2019-07-05] MEDS: mineral oil/petrolatum ophthal oint EACHEYE SCH ×4 (02:04→20:09)
[2019-07-05 02:23] LABS: BASOPHILS # (AUTO) 0.1 X10'3 (0-0.2); BASOPHILS % (AUTO) 0.4 % (0-1); EOSINOPHILS % (AUTO) 0 % (0-6); HEMATOCRIT 40.5 % (35.0-45.0); LYMPHOCYTES # (AUTO) 0.9 X10'3 (1.1-4.8); LYMPHOCYTES % (AUTO) 5.1 % (21-51); MEAN CORPUSCULAR VOLUME 87.5 FL (78-98); MEAN PLATELET VOLUME 8.2 FL (7.4-10.4); MONOCYTES # (AUTO) 1.3 X10'3 (0-0.9); MONOCYTES % (AUTO) 7.6 % (2-12); NEUTROPHILS # (AUTO) 15.1 X10'3 (1.8-7.7); NEUTROPHILS % (AUTO) 86.9 % (42-75); PLATELET COUNT 530 X10'3 (140-440); RED BLOOD COUNT 4.63 X10'6 (4.20-5.60); RED CELL DISTRIBUTION WIDTH 16.5 % (11.5-14.5); WHITE BLOOD COUNT 17.4 X10'3 (4.5-11.0)
[2019-07-05 02:35] LABS: PARTIAL THROMBOPLASTIN TIME 21 SECONDS (22-32)
[2019-07-05 02:39] LABS: ALANINE AMINOTRANSFERASE 165 U/L (12-78); ALBUMIN 2.2 G/DL (3.4-5.0); ALBUMIN/GLOBULIN RATIO 0.5 (1.1-1.5); ALKALINE PHOSPHATASE 68 IU/L (46-116); ANION GAP 8 (8-16); ASPARTATE AMINO TRANSFERASE 47 U/L (10-37); BILIRUBIN,TOTAL 0.6 MG/DL (0.1-1.0); BLOOD UREA NITROGEN 51 MG/DL (7-18); BUN/CREATININE RATIO 59.3 (6.6-38.0); CALCIUM 8.5 MG/DL (8.5-10.1); CHLORIDE 112 MMOL/L (99-107); CREATININE 0.86 MG/DL (0.40-0.90); GLUCOSE 256 MG/DL (70-104); MAGNESIUM 2.2 MG/DL (1.5-2.4); PHOSPHORUS 4.2 MG/DL (2.3-4.5); POTASSIUM 3.9 MMOL/L (3.5-5.1); SODIUM 151 MMOL/L (135-145); TOTAL CARBON DIOXIDE 31.1 MMOL/L (24-32); TOTAL PROTEIN 6.4 G/DL (6.4-8.2); eGFR 69 ML/MIN
[2019-07-05 03:20] LABS: ABG BASE EXCESS 2.7 mmol/L (-2.0-3.0); ABG OXYGEN SATURATION 95.9 % (95-98); ABG PCO2 (T) 45.4 mmHg (35.0-45.0); ABG PH (T) 7.407 (7.350-7.450); ABG PO2 (T) 84.9 mmHg (83-108); FCOHb 0.6 % (0.5-1.5); FMetHb 0.1 % (0.3-1.12); FO2Hb 95.2 % (94-100); MINUTE VOLUME 9 L/min; PATIENT TEMPERATURE 36.8; PEEP 5 cm H2O; RESPIRATORY RATE 18 b/min; RESPIRATORY RATE (OBSERVED) 18 b/min; TIDAL VOLUME 533 mL
--- NOTE | 2019-07-05 06:30 | NUR ---
Patient in room CICU 2013. I have received report from Maria Ines FELICIANO and had the opportunity to ask questions and assume patient care.
[2019-07-05] MEDS: K, MAG and/or Phos replacement - Verify level? MC SCH (08:00)
[2019-07-05] MEDS: CefTRIAXone 2gm/D5W 50ml 50 ML IV SCH (08:22)
[2019-07-05] MEDS: pantoprazole 40 MG vial IV SCH (08:26)
[2019-07-05] MEDS: furosemide 40mg/4ml inj IV SCH ×2 (08:27→20:08)
[2019-07-05] MEDS: enoxaparin 40mg/0.4ml syringe SUBCUT SCH ×2 (08:29→20:09)
[2019-07-05] MEDS: POTASSIUM BICARB 20meq eff tab 20 MEQ TABLET.EFF CORPAK SCH ×3 (08:29→20:09)
[2019-07-05] MEDS: lactobacillus rhamnosus 10,000 MMU CELLS/CAPSULE CORPAK SCH ×2 (08:33→20:09)
--- NOTE | 2019-07-05 15:15 | NUR ---
Patient in room CICU 2012. I have received report from Elisha Chicas and had the opportunity to ask questions and assume patient care. Assessed patient and agree with Elisha product introduction manager charted earlier in shift. Will continue to monitor patient.
--- NOTE | 2019-07-05 18:16 | NUR ---
Problems reprioritized. Patient report given, questions answered & plan of care reviewed with Nikki FELICIANO.
--- NOTE | 2019-07-05 18:17 | NUR ---
Patient in room CICU 2012. I have received report from JODIE Huizar and had the opportunity to ask questions and assume patient care. Patient is intubated and resting comfortably, I will continue to monitor. disposal plant operator is here for testing.
[2019-07-05] MEDS: insulin glargine (Lantus) pen - multi-dose SQ SCH (22:12)
[2019-07-06] VITALS (24 sets, daily range): BP systolic 112–181; BP diastolic 55–88
[2019-07-06] MEDS: insulin regular, human vial - multi-dose SQ SCH ×4 (02:13→20:23)
[2019-07-06] MEDS: mineral oil/petrolatum ophthal oint EACHEYE SCH ×4 (02:18→20:16)
[2019-07-06] MEDS: hydrocortisone sod succ/PF 100mg/2ml inj. IV SCH ×4 (02:18→20:16)
[2019-07-06] MEDS: dexamethasone 4mg/ml inj IV SCH ×4 (02:18→20:15)
[2019-07-06 02:56] LABS: BASOPHILS # (AUTO) 0.2 X10'3 (0-0.2); EOSINOPHILS % (AUTO) 0 % (0-6); HEMOGLOBIN 12.6 g/dl (12.0-16.0); LYMPHOCYTES # (AUTO) 0.9 X10'3 (1.1-4.8); LYMPHOCYTES % (AUTO) 5.1 % (21-51); MEAN CORPUSCULAR HEMOGLOBIN 27.9 PG (27.0-31.0); MEAN CORPUSCULAR HGB CONC 31.4 g/dL (33.0-36.5); MEAN CORPUSCULAR VOLUME 88.9 FL (78-98); MEAN PLATELET VOLUME 8.7 FL (7.4-10.4); MONOCYTES # (AUTO) 1.4 X10'3 (0-0.9); MONOCYTES % (AUTO) 7.5 % (2-12); NEUTROPHILS # (AUTO) 15.6 X10'3 (1.8-7.7); NEUTROPHILS % (AUTO) 86.4 % (42-75); PLATELET COUNT 506 X10'3 (140-440); RED CELL DISTRIBUTION WIDTH 16.4 % (11.5-14.5)
[2019-07-06 03:03] LABS: PARTIAL THROMBOPLASTIN TIME 21 SECONDS (22-32)
[2019-07-06 03:09] LABS: ALANINE AMINOTRANSFERASE 154 U/L (12-78); ALBUMIN 2.2 G/DL (3.4-5.0); ALBUMIN/GLOBULIN RATIO 0.6 (1.1-1.5); ALKALINE PHOSPHATASE 62 IU/L (46-116); ANION GAP 7 (8-16); ASPARTATE AMINO TRANSFERASE 58 U/L (10-37); BILIRUBIN,TOTAL 0.6 MG/DL (0.1-1.0); BLOOD UREA NITROGEN 47 MG/DL (7-18); CALCIUM 8.5 MG/DL (8.5-10.1); CHLORIDE 111 MMOL/L (99-107); CREATININE 0.87 MG/DL (0.40-0.90); GLUCOSE 182 MG/DL (70-104); MAGNESIUM 2.2 MG/DL (1.5-2.4); PHOSPHORUS 4.1 MG/DL (2.3-4.5); POTASSIUM 3.9 MMOL/L (3.5-5.1); SODIUM 151 MMOL/L (135-145); TOTAL CARBON DIOXIDE 33.1 MMOL/L (24-32); TOTAL PROTEIN 6.2 G/DL (6.4-8.2); eGFR 68 ML/MIN
[2019-07-06 04:11] LABS: ABG BASE EXCESS 4.5 mmol/L (-2.0-3.0); ABG HCO3 29.5 mmol/L (22.0-26.0); ABG OXYGEN SATURATION 95.8 % (95-98); ABG PCO2 (T) 46.3 mmHg (35.0-45.0); ABG PH (T) 7.425 (7.350-7.450); ABG PO2 (T) 83.8 mmHg (83-108); FCOHb 0.7 % (0.5-1.5); FO2Hb 95.1 % (94-100); MINUTE VOLUME 9 L/min; PATIENT TEMPERATURE 37.5; PEEP 5 cm H2O; RESPIRATORY RATE 18 b/min; RESPIRATORY RATE (OBSERVED) 18 b/min; TOTAL HEMOGLOBIN 13.3 G/dl (12.0-16.0)
[2019-07-06] MEDS: dexmedetomidin/NS 400mcg/100ml 100 ML IV SCH ×3 (06:10→19:43)
[2019-07-06] MEDS ORDERED: VANCOMYCIN LEVEL IV ONE (07:30)
[2019-07-06] MEDS: CefTRIAXone 2gm/D5W 50ml 50 ML IV SCH (07:50)
[2019-07-06] MEDS: enoxaparin 40mg/0.4ml syringe SUBCUT SCH ×2 (07:52→20:16)
[2019-07-06] MEDS: lactobacillus rhamnosus 10,000 MMU CELLS/CAPSULE CORPAK SCH ×2 (07:52→20:16)
[2019-07-06] MEDS: pantoprazole 40 MG vial IV SCH (07:52)
[2019-07-06] MEDS: POTASSIUM BICARB 20meq eff tab 20 MEQ TABLET.EFF CORPAK SCH ×2 (07:52→17:53)
[2019-07-06] MEDS: furosemide 40mg/4ml inj IV SCH ×2 (07:53→20:15)
[2019-07-06] MEDS: K, MAG and/or Phos replacement - Verify level? MC SCH (07:54)
[2019-07-06] MEDS: VANCOmycin 1250MG/NS 250ml Bag 250 ML IV SCH (17:53)
--- NOTE | 2019-07-06 18:18 | NUR ---
Patient in room CICU 2012. I have received report from JODIE Kendall and had the opportunity to ask questions and assume patient care. Patient still intubated and sedated with Precedex, Fentanyl turned off.
--- NOTE | 2019-07-06 19:59 | NUR ---
Patient sister was here to visit.
[2019-07-06] MEDS: insulin glargine (Lantus) pen - multi-dose SQ SCH (21:42)
[2019-07-07] VITALS (25 sets, daily range): BP systolic 101–139; BP diastolic 54–93
[2019-07-07] MEDS: VANCOmycin 1250MG/NS 250ml Bag 250 ML IV SCH ×3 (00:15→16:17)
[2019-07-07] MEDS: POTASSIUM BICARB 20meq eff tab 20 MEQ TABLET.EFF CORPAK SCH ×4 (00:15→23:50)
[2019-07-07] MEDS: dexmedetomidin/NS 400mcg/100ml 100 ML IV SCH ×3 (01:00→18:25)
[2019-07-07] MEDS: insulin regular, human vial - multi-dose SQ SCH ×4 (02:17→20:31)
[2019-07-07] MEDS: dexamethasone 4mg/ml inj IV SCH ×4 (02:22→20:26)
[2019-07-07] MEDS: mineral oil/petrolatum ophthal oint EACHEYE SCH ×4 (02:22→20:26)
[2019-07-07] MEDS: hydrocortisone sod succ/PF 100mg/2ml inj. IV SCH ×4 (02:22→20:26)
[2019-07-07 03:01] LABS: BASOPHILS # (AUTO) 0.1 X10'3 (0-0.2); BASOPHILS % (AUTO) 0.6 % (0-1); EOSINOPHILS % (AUTO) 0 % (0-6); HEMOGLOBIN 12.4 g/dl (12.0-16.0); LYMPHOCYTES # (AUTO) 0.9 X10'3 (1.1-4.8); LYMPHOCYTES % (AUTO) 6.2 % (21-51); MEAN CORPUSCULAR HEMOGLOBIN 28.5 PG (27.0-31.0); MEAN CORPUSCULAR HGB CONC 31.9 g/dL (33.0-36.5); MEAN CORPUSCULAR VOLUME 89.1 FL (78-98); MEAN PLATELET VOLUME 8.9 FL (7.4-10.4); MONOCYTES # (AUTO) 1.2 X10'3 (0-0.9); MONOCYTES % (AUTO) 8.5 % (2-12); NEUTROPHILS # (AUTO) 12.4 X10'3 (1.8-7.7); NEUTROPHILS % (AUTO) 84.7 % (42-75); PLATELET COUNT 407 X10'3 (140-440); RED BLOOD COUNT 4.37 X10'6 (4.20-5.60); RED CELL DISTRIBUTION WIDTH 16.6 % (11.5-14.5); WHITE BLOOD COUNT 14.7 X10'3 (4.5-11.0)
[2019-07-07 03:03] LABS: ALANINE AMINOTRANSFERASE 165 U/L (12-78); ALBUMIN 2.2 G/DL (3.4-5.0); ALBUMIN/GLOBULIN RATIO 0.6 (1.1-1.5); ALKALINE PHOSPHATASE 65 IU/L (46-116); ANION GAP 5 (8-16); ASPARTATE AMINO TRANSFERASE 55 U/L (10-37); BILIRUBIN,TOTAL 0.6 MG/DL (0.1-1.0); BLOOD UREA NITROGEN 42 MG/DL (7-18); BUN/CREATININE RATIO 47.7 (6.6-38.0); CALCIUM 8.4 MG/DL (8.5-10.1); CHLORIDE 111 MMOL/L (99-107); CREATININE 0.88 MG/DL (0.40-0.90); GLUCOSE 200 MG/DL (70-104); MAGNESIUM 2.2 MG/DL (1.5-2.4); PARTIAL THROMBOPLASTIN TIME 22 SECONDS (22-32); PHOSPHORUS 3.4 MG/DL (2.3-4.5); POTASSIUM 3.9 MMOL/L (3.5-5.1); SODIUM 150 MMOL/L (135-145); TOTAL CARBON DIOXIDE 34.3 MMOL/L (24-32); TOTAL PROTEIN 5.9 G/DL (6.4-8.2); eGFR 67 ML/MIN
[2019-07-07 03:06] LABS: ABG BASE EXCESS 5.8 mmol/L (-2.0-3.0); ABG HCO3 30.4 mmol/L (22.0-26.0); ABG OXYGEN SATURATION 97.4 % (95-98); ABG PCO2 (T) 45.9 mmHg (35.0-45.0); ABG PH (T) 7.443 (7.350-7.450); ABG PO2 (T) 96.5 mmHg (83-108); FCOHb 0.7 % (0.5-1.5); FMetHb 0.3 % (0.3-1.12); FO2Hb 96.4 % (94-100); MINUTE VOLUME 11 L/min; PEEP 5 cm H2O; RESPIRATORY RATE 18 b/min; RESPIRATORY RATE (OBSERVED) 21 b/min; TOTAL HEMOGLOBIN 13.4 G/dl (12.0-16.0)
[2019-07-07] MEDS: lactobacillus rhamnosus 10,000 MMU CELLS/CAPSULE CORPAK SCH ×2 (07:37→20:25)
[2019-07-07] MEDS: CefTRIAXone 2gm/D5W 50ml 50 ML IV SCH (07:38)
[2019-07-07] MEDS: furosemide 40mg/4ml inj IV SCH ×2 (07:38→20:26)
[2019-07-07] MEDS: pantoprazole 40 MG vial IV SCH (07:40)
[2019-07-07] MEDS: enoxaparin 40mg/0.4ml syringe SUBCUT SCH ×2 (07:43→20:26)
[2019-07-07] MEDS: K, MAG and/or Phos replacement - Verify level? MC SCH (08:00)
--- NOTE | 2019-07-07 12:24 | NUR ---
Late assessment entered for assessment done on 07/07/19 Addendum: 07/12/19 at 1225 by Anatoly Srinivasan RN Amended: Links added.
--- NOTE | 2019-07-07 16:17 | NUR ---
Reassessment: Pt remains intubated and tolerating TF with GRV WNL. Sodium was elevated at 151, today is 150 with 300 ml water flush q 4 hours. Patient's weight fluctuates however is currently stable with admit, likely r/t changes in fluid status. LBM 07/07 documented as moderate liquid diarrhea. No change to nutrition intervention. Pt admit with AMS, resp fail, LLE cellulitis, and sepsis with hx illicit drug use. Recommendations are calculated to meet 100% of patient's estimated nutrient needs using Adjusted IBW. Per physical assessment pt with bilateral generalized 3+ edema and LLE 3+ moderate edema. Will continue to follow closely. . Recommendations: 1) Continuous NGTF per MD using Vital High Protein at 95mL/hr goal; to provide 2280ml fluid, 1915ml free water, 2280kcals, and 200g protein. Initiate at 20ml/hr and advance 20ml Q8 to goal as tolerated. 2) additional water flush 300 ml q 4 3) prealbumin q /; daily weights 4) routine bowel care 5) when extubated, advance diet as medically indicated to heart healthy 6) DM education once stable; A1c 7.1 Addendum: 07/07/19 at [address] Amended: Links added.
--- NOTE | 2019-07-07 18:58 | NUR ---
Patient in room CICU 2013. I have received report from JIM FELICIANO and had the opportunity to ask questions and assume patient care.
[2019-07-07] MEDS: insulin glargine (Lantus) pen - multi-dose SQ SCH (20:32)
[2019-07-08] VITALS (23 sets, daily range): BP systolic 126–176; BP diastolic 60–86
[2019-07-08] MEDS: VANCOmycin 1250MG/NS 250ml Bag 250 ML IV SCH ×3 (00:24→18:31)
[2019-07-08] MEDS: dexmedetomidin/NS 400mcg/100ml 100 ML IV SCH ×4 (01:26→22:01)
[2019-07-08] MEDS: dexamethasone 4mg/ml inj IV SCH ×4 (02:11→20:32)
[2019-07-08] MEDS: hydrocortisone sod succ/PF 100mg/2ml inj. IV SCH ×4 (02:12→20:32)
[2019-07-08] MEDS: mineral oil/petrolatum ophthal oint EACHEYE SCH ×4 (02:12→20:27)
[2019-07-08] MEDS: insulin regular, human vial - multi-dose SQ SCH ×3 (02:14→20:38)
[2019-07-08 03:25] LABS: BASOPHILS # (AUTO) 0.1 X10'3 (0-0.2); BASOPHILS % (AUTO) 0.4 % (0-1); EOSINOPHILS % (AUTO) 0 % (0-6); HEMATOCRIT 38.8 % (35.0-45.0); HEMOGLOBIN 12.3 g/dl (12.0-16.0); LYMPHOCYTES # (AUTO) 1.2 X10'3 (1.1-4.8); LYMPHOCYTES % (AUTO) 8.1 % (21-51); MEAN CORPUSCULAR HEMOGLOBIN 28.1 PG (27.0-31.0); MEAN CORPUSCULAR HGB CONC 31.8 g/dL (33.0-36.5); MEAN CORPUSCULAR VOLUME 88.6 FL (78-98); MEAN PLATELET VOLUME 9.2 FL (7.4-10.4); MONOCYTES % (AUTO) 7.1 % (2-12); NEUTROPHILS # (AUTO) 12.1 X10'3 (1.8-7.7); NEUTROPHILS % (AUTO) 84.4 % (42-75); PLATELET COUNT 350 X10'3 (140-440); RED BLOOD COUNT 4.38 X10'6 (4.20-5.60); WHITE BLOOD COUNT 14.4 X10'3 (4.5-11.0)
[2019-07-08 03:33] LABS: PARTIAL THROMBOPLASTIN TIME 22 SECONDS (22-32)
[2019-07-08 03:42] LABS: ALANINE AMINOTRANSFERASE 143 U/L (12-78); ALBUMIN 2.2 G/DL (3.4-5.0); ALBUMIN/GLOBULIN RATIO 0.6 (1.1-1.5); ALKALINE PHOSPHATASE 59 IU/L (46-116); ANION GAP 6 (8-16); ASPARTATE AMINO TRANSFERASE 45 U/L (10-37); BILIRUBIN,TOTAL 0.8 MG/DL (0.1-1.0); BLOOD UREA NITROGEN 44 MG/DL (7-18); CALCIUM 8.2 MG/DL (8.5-10.1); CHLORIDE 109 MMOL/L (99-107); GLUCOSE 187 MG/DL (70-104); MAGNESIUM 2.2 MG/DL (1.5-2.4); PHOSPHORUS 3.6 MG/DL (2.3-4.5); POTASSIUM 3.4 MMOL/L (3.5-5.1); SODIUM 149 MMOL/L (135-145); TOTAL CARBON DIOXIDE 33.8 MMOL/L (24-32); TOTAL PROTEIN 5.9 G/DL (6.4-8.2); eGFR 75 ML/MIN
--- NOTE | 2019-07-08 05:16 | NUR ---
phoned June LEATHER REPAIRER regarding pt increased vitals and appearing more uncomfortable last few hours, it seems to be increased when oral care or suction is done. pt has a lot of oral secretions but tongue is very swollen. pressure gets into the 200s but it comes back down and is now 140s. cont to monitor per june
[2019-07-08 05:21] LABS: ABG BASE EXCESS 6.6 mmol/L (-2.0-3.0); ABG HCO3 31.8 mmol/L (22.0-26.0); ABG OXYGEN SATURATION 96.9 % (95-98); ABG PCO2 (T) 48.1 mmHg (35.0-45.0); ABG PH (T) 7.439 (7.350-7.450); ABG PO2 (T) 90.4 mmHg (83-108); FCOHb 0.9 % (0.5-1.5); FMetHb 0.3 % (0.3-1.12); FO2Hb 95.7 % (94-100); MINUTE VOLUME 14 L/min; PATIENT TEMPERATURE 37.1; PEEP 5 cm H2O; RESPIRATORY RATE 18 b/min; RESPIRATORY RATE (OBSERVED) 30 b/min; TOTAL HEMOGLOBIN 13.5 G/dl (12.0-16.0)
--- NOTE | 2019-07-08 06:15 | NUR ---
Patient in room CICU 2012. I have received report from shift superintendent and had the opportunity to ask questions and assume patient care.
--- NOTE | 2019-07-08 06:25 | NUR ---
Problems reprioritized. Patient report given, questions answered & plan of care reviewed with PUJA FELICIANO.
[2019-07-08] MEDS ORDERED: VANCOMYCIN LEVEL IV ONE (07:30)
[2019-07-08] MEDS: K, MAG and/or Phos replacement - Verify level? MC SCH (08:00)
[2019-07-08] MEDS: pantoprazole 40 MG vial IV SCH (08:32)
[2019-07-08] MEDS: enoxaparin 40mg/0.4ml syringe SUBCUT SCH ×2 (08:32→20:32)
[2019-07-08] MEDS: POTASSIUM BICARB 20meq eff tab 20 MEQ TABLET.EFF CORPAK SCH ×2 (08:32→18:31)
[2019-07-08] MEDS: furosemide 40mg/4ml inj IV SCH ×2 (08:32→20:32)
[2019-07-08] MEDS: lactobacillus rhamnosus 10,000 MMU CELLS/CAPSULE CORPAK SCH ×2 (08:33→20:32)
[2019-07-08] MEDS ORDERED: amiodarone 150mg/dext, iso-os 100 ML IV ONE (13:15)
[2019-07-08] MEDS ORDERED: tPA-cathflo 2 MG/2 ml IV flush IVF ONE (13:55)
[2019-07-08] MEDS: amiodarone/D5 360MG/200ML BAG 200 ML IV SCH ×2 (13:58→19:52)
--- NOTE | 2019-07-08 18:09 | NUR ---
Problems reprioritized. Patient report given, questions answered & plan of care reviewed with oncoming shift.
--- NOTE | 2019-07-08 18:38 | NUR ---
Patient in room CICU 2013. I have received report from PUJA FELICIANO and had the opportunity to ask questions and assume patient care.
[2019-07-08] MEDS: mineral oil/petrolatum, white cream 113gm jar TP SCH (20:31)
[2019-07-08] MEDS: insulin glargine (Lantus) pen - multi-dose SQ SCH (20:39)
[2019-07-09] VITALS (24 sets, daily range): BP systolic 104–168; BP diastolic 60–104
[2019-07-09] MEDS: VANCOmycin 1250MG/NS 250ml Bag 250 ML IV SCH ×2 (00:36→07:27)
[2019-07-09] MEDS: POTASSIUM BICARB 20meq eff tab 20 MEQ TABLET.EFF CORPAK SCH ×3 (00:36→16:01)
[2019-07-09] MEDS: amiodarone/D5 360MG/200ML BAG 200 ML IV SCH ×4 (00:42→20:26)
[2019-07-09] MEDS: hydrocortisone sod succ/PF 100mg/2ml inj. IV SCH ×2 (02:10→07:28)
[2019-07-09] MEDS: mineral oil/petrolatum ophthal oint EACHEYE SCH ×4 (02:10→20:26)
[2019-07-09] MEDS: dexamethasone 4mg/ml inj IV SCH ×4 (02:10→20:26)
[2019-07-09] MEDS: insulin regular, human vial - multi-dose SQ SCH ×4 (02:12→20:39)
[2019-07-09 03:20] LABS: BASOPHILS # (AUTO) 0.1 X10'3 (0-0.2); BASOPHILS % (AUTO) 0.8 % (0-1); EOSINOPHILS % (AUTO) 0 % (0-6); HEMATOCRIT 42.3 % (35.0-45.0); HEMOGLOBIN 13.6 g/dl (12.0-16.0); LYMPHOCYTES # (AUTO) 1.1 X10'3 (1.1-4.8); LYMPHOCYTES % (AUTO) 6.9 % (21-51); MEAN CORPUSCULAR HEMOGLOBIN 28.3 PG (27.0-31.0); MEAN CORPUSCULAR HGB CONC 32.1 g/dL (33.0-36.5); MEAN CORPUSCULAR VOLUME 88.1 FL (78-98); MEAN PLATELET VOLUME 9.3 FL (7.4-10.4); MONOCYTES # (AUTO) 1.1 X10'3 (0-0.9); MONOCYTES % (AUTO) 6.8 % (2-12); NEUTROPHILS # (AUTO) 13.4 X10'3 (1.8-7.7); NEUTROPHILS % (AUTO) 85.5 % (42-75); PLATELET COUNT 337 X10'3 (140-440); RED CELL DISTRIBUTION WIDTH 16.4 % (11.5-14.5); WHITE BLOOD COUNT 15.7 X10'3 (4.5-11.0)
[2019-07-09 03:28] LABS: PARTIAL THROMBOPLASTIN TIME 23 SECONDS (22-32)
[2019-07-09 03:41] LABS: ALANINE AMINOTRANSFERASE 140 U/L (12-78); ALBUMIN 2.3 G/DL (3.4-5.0); ALBUMIN/GLOBULIN RATIO 0.6 (1.1-1.5); ALKALINE PHOSPHATASE 63 IU/L (46-116); ANION GAP 5 (8-16); ASPARTATE AMINO TRANSFERASE 49 U/L (10-37); BILIRUBIN,TOTAL 0.8 MG/DL (0.1-1.0); BLOOD UREA NITROGEN 40 MG/DL (7-18); CALCIUM 8.8 MG/DL (8.5-10.1); CHLORIDE 106 MMOL/L (99-107); GLUCOSE 205 MG/DL (70-104); PHOSPHORUS 3.3 MG/DL (2.3-4.5); POTASSIUM 3.6 MMOL/L (3.5-5.1); SODIUM 148 MMOL/L (135-145); TOTAL PROTEIN 6.1 G/DL (6.4-8.2); eGFR 75 ML/MIN
[2019-07-09 04:20] LABS: ABG BASE EXCESS 7.3 mmol/L (-2.0-3.0); ABG HCO3 31.3 mmol/L (22.0-26.0); ABG OXYGEN SATURATION 96.7 % (95-98); ABG PCO2 (T) 41.6 mmHg (35.0-45.0); ABG PH (T) 7.494 (7.350-7.450); ABG PO2 (T) 83.4 mmHg (83-108); FCOHb 0.7 % (0.5-1.5); MINUTE VOLUME 10 L/min; PATIENT TEMPERATURE 36.9; PEEP 5 cm H2O; RESPIRATORY RATE 18 b/min; RESPIRATORY RATE (OBSERVED) 18 b/min; TOTAL HEMOGLOBIN 14.5 G/dl (12.0-16.0)
--- NOTE | 2019-07-09 06:15 | NUR ---
Patient in room CICU 2012. I have received report from outsole caser and had the opportunity to ask questions and assume patient care.
--- NOTE | 2019-07-09 06:15 | NUR ---
Patient in room CICU 2012. I have received report from night shift manager and had the opportunity to ask questions and assume patient care.
--- NOTE | 2019-07-09 06:18 | NUR ---
Problems reprioritized. Patient report given, questions answered & plan of care reviewed with PUJA FELICIANO.
[2019-07-09] MEDS: dexmedetomidin/NS 400mcg/100ml 100 ML IV SCH (06:19)
[2019-07-09] MEDS: enoxaparin 40mg/0.4ml syringe SUBCUT SCH (07:27)
[2019-07-09] MEDS: pantoprazole 40 MG vial IV SCH (07:28)
[2019-07-09] MEDS: furosemide 40mg/4ml inj IV SCH ×2 (07:28→20:27)
[2019-07-09] MEDS: lactobacillus rhamnosus 10,000 MMU CELLS/CAPSULE CORPAK SCH ×2 (07:28→20:26)
[2019-07-09] MEDS: mineral oil/petrolatum, white cream 113gm jar TP SCH ×2 (07:29→20:26)
[2019-07-09] MEDS: K, MAG and/or Phos replacement - Verify level? MC SCH (08:07)
[2019-07-09] MEDS ORDERED: levoFLOXACIN-Levaquin 500mg/D5 100 ML IV SCH (11:58)
--- NOTE | 2019-07-09 18:07 | NUR ---
Problems reprioritized. Patient report given, questions answered & plan of care reviewed with oncoming shift.
[2019-07-09] MEDS: ipratropium/albuterol 3ml nebule NEB PRN ×2 (18:46→22:31)
[2019-07-09] MEDS: enoxaparin 100mg/ml syringe SUBCUT SCH (20:28)
[2019-07-09] MEDS: enoxaparin 30mg/0.3ml syringe SUBCUT SCH (20:29)
[2019-07-09] MEDS: insulin glargine (Lantus) pen - multi-dose SQ SCH (20:39)
[2019-07-10] VITALS (24 sets, daily range): BP systolic 102–177; BP diastolic 61–83
[2019-07-10] MEDS: POTASSIUM BICARB 20meq eff tab 20 MEQ TABLET.EFF CORPAK SCH ×3 (00:19→19:05)
[2019-07-10] MEDS: amiodarone/D5 360MG/200ML BAG 200 ML IV SCH ×4 (01:37→19:57)
[2019-07-10] MEDS: mineral oil/petrolatum ophthal oint EACHEYE SCH ×4 (02:31→19:58)
[2019-07-10] MEDS: insulin regular, human vial - multi-dose SQ SCH ×3 (02:33→20:08)
[2019-07-10] MEDS: ipratropium/albuterol 3ml nebule NEB PRN ×2 (02:36→18:43)
[2019-07-10 03:02] LABS: BASOPHILS # (AUTO) 0.1 X10'3 (0-0.2); BASOPHILS % (AUTO) 0.5 % (0-1); EOSINOPHILS % (AUTO) 0 % (0-6); HEMATOCRIT 42.7 % (35.0-45.0); HEMOGLOBIN 13.7 g/dl (12.0-16.0); LYMPHOCYTES # (AUTO) 1.1 X10'3 (1.1-4.8); LYMPHOCYTES % (AUTO) 6.4 % (21-51); MEAN CORPUSCULAR HEMOGLOBIN 27.7 PG (27.0-31.0); MEAN CORPUSCULAR VOLUME 86.8 FL (78-98); MEAN PLATELET VOLUME 9.4 FL (7.4-10.4); MONOCYTES # (AUTO) 1.4 X10'3 (0-0.9); MONOCYTES % (AUTO) 8.6 % (2-12); NEUTROPHILS % (AUTO) 84.5 % (42-75); PLATELET COUNT 347 X10'3 (140-440); RED BLOOD COUNT 4.92 X10'6 (4.20-5.60); RED CELL DISTRIBUTION WIDTH 16.4 % (11.5-14.5); WHITE BLOOD COUNT 16.6 X10'3 (4.5-11.0)
[2019-07-10 03:10] LABS: ALANINE AMINOTRANSFERASE 126 U/L (12-78); ALBUMIN 2.2 G/DL (3.4-5.0); ALBUMIN/GLOBULIN RATIO 0.6 (1.1-1.5); ALKALINE PHOSPHATASE 61 IU/L (46-116); ANION GAP 5 (8-16); ASPARTATE AMINO TRANSFERASE 48 U/L (10-37); BILIRUBIN,TOTAL 0.8 MG/DL (0.1-1.0); BLOOD UREA NITROGEN 40 MG/DL (7-18); BUN/CREATININE RATIO 48.8 (6.6-38.0); CALCIUM 8.8 MG/DL (8.5-10.1); CHLORIDE 103 MMOL/L (99-107); CREATININE 0.82 MG/DL (0.40-0.90); GLUCOSE 209 MG/DL (70-104); POTASSIUM 3.7 MMOL/L (3.5-5.1); SODIUM 146 MMOL/L (135-145); TOTAL CARBON DIOXIDE 37.8 MMOL/L (24-32); TOTAL PROTEIN 5.9 G/DL (6.4-8.2); eGFR 73 ML/MIN
[2019-07-10 05:25] LABS: ABG BASE EXCESS 8.5 mmol/L (-2.0-3.0); ABG HCO3 32.9 mmol/L (22.0-26.0); ABG OXYGEN SATURATION 97.7 % (95-98); ABG PCO2 (T) 43.6 mmHg (35.0-45.0); ABG PH (T) 7.495 (7.350-7.450); FCOHb 0.8 % (0.5-1.5); FMetHb 0.3 % (0.3-1.12); FO2Hb 96.6 % (94-100); MINUTE VOLUME 14 L/min; PATIENT TEMPERATURE 36.9; PEEP 5 cm H2O; RESPIRATORY RATE 16 b/min; RESPIRATORY RATE (OBSERVED) 18 b/min; TIDAL VOLUME 628 mL; TOTAL HEMOGLOBIN 14.2 G/dl (12.0-16.0)
--- NOTE | 2019-07-10 06:30 | NUR ---
Patient in room CICU 2013. I have received report from Mateusz FELICIANO and had the opportunity to ask questions and assume patient care.
--- NOTE | 2019-07-10 06:50 | NUR ---
Problems reprioritized. Patient report given, questions answered & plan of care reviewed with Chaitanya FELICIANO.
[2019-07-10] MEDS: lactobacillus rhamnosus 10,000 MMU CELLS/CAPSULE CORPAK SCH ×2 (07:29→19:57)
[2019-07-10] MEDS: pantoprazole 40 MG vial IV SCH (07:29)
[2019-07-10] MEDS: furosemide 40mg/4ml inj IV SCH ×2 (07:29→19:58)
[2019-07-10] MEDS: levoFLOXACIN-Levaquin 500mg/D5 100 ML IV SCH (07:30)
[2019-07-10] MEDS: dexamethasone 4mg/ml inj IV SCH ×2 (07:30→19:57)
[2019-07-10] MEDS: enoxaparin 30mg/0.3ml syringe SUBCUT SCH ×2 (07:31→19:58)
[2019-07-10] MEDS: mineral oil/petrolatum, white cream 113gm jar TP SCH ×2 (07:31→19:58)
[2019-07-10] MEDS: enoxaparin 100mg/ml syringe SUBCUT SCH ×2 (07:31→19:57)
[2019-07-10] MEDS: K, MAG and/or Phos replacement - Verify level? MC SCH (08:00)
--- NOTE | 2019-07-10 14:40 | NUR ---
Reassessment: Pt intubated and tolerating TF with gastric residuals WNL. Sodium improving steadily, now 146 from 151 with 300 ml water flush q 4 hours. Patient's weight fluctuates however is currently stable with admit, likely r/t changes in fluid status. LBM 07/10 documented nine small BM since 07/08 out rectal tube. No change to nutrition intervention. Pt admit with AMS, resp fail, LLE cellulitis, and sepsis with hx illicit drug use. Pending possible PEG and trach per MD note. Recommendations are calculated to meet 100% of patient's estimated nutrient needs using Adjusted IBW. Per physical assessment pt with bilateral generalized 3+ edema and LLE 3+ moderate edema. Will continue to follow. Recommendations: 1) Continuous NGTF using Vital High Protein at 95mL/hr goal; to provide 2280ml fluid, 1915ml free water, 2280kcals, and 200g protein. Initiate at 20ml/hr and advance 20ml Q8 to goal as tolerated. 2) additional water flush 300 ml q 4 3) prealbumin q /; daily weights 4) Bowel care as needed Addendum: 07/10/19 at [address] Amended: Links added.
--- NOTE | 2019-07-10 18:25 | NUR ---
Patient in room CICU 2012. I have received report from and had the opportunity to ask questions and assume patient care. Addendum: 07/10/19 at 1900 by Emma Lama RN Continuation: [facility]. I have received report from Chaitanya FELICIANO and had the opportunity to ask questions and assume patient care. Patient intubated on A/C PC mode and saturating at 94% on 35% FIO2, overbreathing vent at 20 breaths/min. HR in 110s in a-fib. No sedation infusing at this time. Patient opening eyes spontaneously without any purposeful movement-not tracking with eyes or blinking to commands. Will continue to monitor patient.
[2019-07-10] MEDS: insulin glargine (Lantus) pen - multi-dose SQ SCH (20:10)
[2019-07-11] VITALS (23 sets, daily range): BP systolic 95–139; BP diastolic 57–90
[2019-07-11] MEDS: POTASSIUM BICARB 20meq eff tab 20 MEQ TABLET.EFF CORPAK SCH ×3 (00:46→15:16)
[2019-07-11] MEDS: amiodarone/D5 360MG/200ML BAG 200 ML IV SCH ×4 (01:53→19:00)
[2019-07-11] MEDS: mineral oil/petrolatum ophthal oint EACHEYE SCH ×4 (02:00→20:18)
[2019-07-11] MEDS: insulin regular, human vial - multi-dose SQ SCH ×4 (02:22→20:38)
[2019-07-11 03:35] LABS: BASOPHILS % (AUTO) 0.3 % (0-1); EOSINOPHILS % (AUTO) 0.2 % (0-6); HEMOGLOBIN 13.8 g/dl (12.0-16.0); LYMPHOCYTES % (AUTO) 7.1 % (21-51); MEAN CORPUSCULAR HGB CONC 32.2 g/dL (33.0-36.5); MEAN CORPUSCULAR VOLUME 86.8 FL (78-98); MEAN PLATELET VOLUME 10.1 FL (7.4-10.4); MONOCYTES # (AUTO) 1.2 X10'3 (0-0.9); MONOCYTES % (AUTO) 8.8 % (2-12); NEUTROPHILS # (AUTO) 11.7 X10'3 (1.8-7.7); NEUTROPHILS % (AUTO) 83.6 % (42-75); PLATELET COUNT 319 X10'3 (140-440); RED BLOOD COUNT 4.95 X10'6 (4.20-5.60); RED CELL DISTRIBUTION WIDTH 16.3 % (11.5-14.5)
[2019-07-11 03:44] LABS: ALANINE AMINOTRANSFERASE 143 U/L (12-78); ALBUMIN 2.3 G/DL (3.4-5.0); ALBUMIN/GLOBULIN RATIO 0.6 (1.1-1.5); ALKALINE PHOSPHATASE 80 IU/L (46-116); ANION GAP 7 (8-16); ASPARTATE AMINO TRANSFERASE 60 U/L (10-37); BILIRUBIN,TOTAL 1.3 MG/DL (0.1-1.0); BLOOD UREA NITROGEN 37 MG/DL (7-18); BUN/CREATININE RATIO 48.1 (6.6-38.0); CALCIUM 8.4 MG/DL (8.5-10.1); CHLORIDE 98 MMOL/L (99-107); CREATININE 0.77 MG/DL (0.40-0.90); GLUCOSE 255 MG/DL (70-104); POTASSIUM 4.1 MMOL/L (3.5-5.1); SODIUM 140 MMOL/L (135-145); TOTAL CARBON DIOXIDE 35.3 MMOL/L (24-32); TOTAL PROTEIN 5.9 G/DL (6.4-8.2); eGFR 79 ML/MIN
[2019-07-11 04:41] LABS: ABG BASE EXCESS 12.4 mmol/L (-2.0-3.0); ABG HCO3 36.7 mmol/L (22.0-26.0); ABG OXYGEN SATURATION 97.2 % (95-98); ABG PCO2 (T) 44.9 mmHg (35.0-45.0); ABG PO2 (T) 90.4 mmHg (83-108); FCOHb 0.8 % (0.5-1.5); FMetHb 0.1 % (0.3-1.12); FO2Hb 96.3 % (94-100); MINUTE VOLUME 11 L/min; PATIENT TEMPERATURE 37.1; PEEP 5 cm H2O; RESPIRATORY RATE 16 b/min; RESPIRATORY RATE (OBSERVED) 17 b/min; TIDAL VOLUME 613 mL; TOTAL HEMOGLOBIN 14.9 G/dl (12.0-16.0)
--- NOTE | 2019-07-11 06:30 | NUR ---
Problems reprioritized. Patient report given, questions answered & plan of care reviewed with Kyleigh FELICIANO.
[2019-07-11] MEDS: levoFLOXACIN-Levaquin 500mg/D5 100 ML IV SCH (08:15)
[2019-07-11] MEDS: furosemide 40mg/4ml inj IV SCH ×2 (08:16→20:18)
[2019-07-11] MEDS: pantoprazole 40 MG vial IV SCH (08:16)
[2019-07-11] MEDS: lactobacillus rhamnosus 10,000 MMU CELLS/CAPSULE CORPAK SCH ×2 (08:17→20:18)
[2019-07-11] MEDS: dexamethasone 4mg/ml inj IV SCH ×2 (08:17→20:18)
[2019-07-11] MEDS: enoxaparin 100mg/ml syringe SUBCUT SCH (08:21)
[2019-07-11] MEDS: enoxaparin 30mg/0.3ml syringe SUBCUT SCH (08:22)
[2019-07-11] MEDS: mineral oil/petrolatum, white cream 113gm jar TP SCH ×2 (08:22→20:18)
[2019-07-11] MEDS: K, MAG and/or Phos replacement - Verify level? MC SCH (08:45)
[2019-07-11] MEDS: scopolamine 1.5mg patch.TD72 TD SCH (15:16)
--- NOTE | 2019-07-11 18:25 | NUR ---
Patient in room CICU 2012. I have received report from Kyleigh FELICIANO and had the opportunity to ask questions and assume patient care. Patient intubated on A/C PC mode, saturating at 97% on 35% FIO2. Opens eyes spontaneously without tracking or purposeful eye movement. Not following commands or making any purposeful movement, currently off all sedation. Vitals WNL. Will continue to monitor patient.
[2019-07-11] MEDS: insulin glargine (Lantus) pen - multi-dose SQ SCH (20:40)
[2019-07-11] MEDS ORDERED: diatr meglu/diatrizoate 30ml oral sol.-(3 dose) bottle NG ONE (22:00)
[2019-07-12] VITALS (23 sets, daily range): BP systolic 102–144; BP diastolic 62–85
[2019-07-12] MEDS: POTASSIUM BICARB 20meq eff tab 20 MEQ TABLET.EFF CORPAK SCH ×3 (00:05→16:12)
[2019-07-12] MEDS: Dextrose 10%-water IV solution 1,000 ML IV SCH ×3 (00:06→19:13)
[2019-07-12] MEDS: amiodarone/D5 360MG/200ML BAG 200 ML IV SCH ×4 (02:09→21:26)
[2019-07-12] MEDS: mineral oil/petrolatum ophthal oint EACHEYE SCH ×4 (02:19→21:03)
[2019-07-12] MEDS: insulin regular, human vial - multi-dose SQ SCH ×4 (02:19→21:23)
[2019-07-12 02:31] LABS: BASOPHILS % (AUTO) 0.3 % (0-1); EOSINOPHILS % (AUTO) 0.2 % (0-6); HEMATOCRIT 41.2 % (35.0-45.0); HEMOGLOBIN 13.4 g/dl (12.0-16.0); LYMPHOCYTES # (AUTO) 0.8 X10'3 (1.1-4.8); LYMPHOCYTES % (AUTO) 6.9 % (21-51); MEAN CORPUSCULAR HGB CONC 32.5 g/dL (33.0-36.5); MEAN CORPUSCULAR VOLUME 86.3 FL (78-98); MEAN PLATELET VOLUME 9.6 FL (7.4-10.4); MONOCYTES # (AUTO) 0.9 X10'3 (0-0.9); MONOCYTES % (AUTO) 7.5 % (2-12); NEUTROPHILS # (AUTO) 10.1 X10'3 (1.8-7.7); NEUTROPHILS % (AUTO) 85.1 % (42-75); PLATELET COUNT 276 X10'3 (140-440); RED BLOOD COUNT 4.77 X10'6 (4.20-5.60); RED CELL DISTRIBUTION WIDTH 16.3 % (11.5-14.5); WHITE BLOOD COUNT 11.9 X10'3 (4.5-11.0)
[2019-07-12 02:44] LABS: ALANINE AMINOTRANSFERASE 140 U/L (12-78); ALBUMIN 2.2 G/DL (3.4-5.0); ALBUMIN/GLOBULIN RATIO 0.6 (1.1-1.5); ALKALINE PHOSPHATASE 88 IU/L (46-116); ANION GAP 5 (8-16); ASPARTATE AMINO TRANSFERASE 55 U/L (10-37); BILIRUBIN,TOTAL 1.1 MG/DL (0.1-1.0); BLOOD UREA NITROGEN 33 MG/DL (7-18); BUN/CREATININE RATIO 45.8 (6.6-38.0); CALCIUM 8.2 MG/DL (8.5-10.1); CHLORIDE 98 MMOL/L (99-107); CREATININE 0.72 MG/DL (0.40-0.90); GLUCOSE 211 MG/DL (70-104); MAGNESIUM 2.1 MG/DL (1.5-2.4); SODIUM 139 MMOL/L (135-145); TOTAL CARBON DIOXIDE 36.1 MMOL/L (24-32); TOTAL PROTEIN 5.8 G/DL (6.4-8.2); eGFR 85 ML/MIN
[2019-07-12 04:21] LABS: ABG BASE EXCESS 10.2 mmol/L (-2.0-3.0); ABG HCO3 34.1 mmol/L (22.0-26.0); ABG OXYGEN SATURATION 97.3 % (95-98); ABG PCO2 (T) 41.8 mmHg (35.0-45.0); ABG PH (T) 7.528 (7.350-7.450); ABG PO2 (T) 90.7 mmHg (83-108); FCOHb 0.8 % (0.5-1.5); FMetHb 0.1 % (0.3-1.12); FO2Hb 96.4 % (94-100); MINUTE VOLUME 10 L/min; PATIENT TEMPERATURE 36.6; PEEP 5 cm H2O; RESPIRATORY RATE 20 b/min; RESPIRATORY RATE (OBSERVED) 20 b/min; TIDAL VOLUME 519 mL; TOTAL HEMOGLOBIN 14.2 G/dl (12.0-16.0)
--- NOTE | 2019-07-12 06:30 | NUR ---
Problems reprioritized. Patient report given, questions answered & plan of care reviewed with Kyleigh FELICIANO.
--- NOTE | 2019-07-12 06:59 | NUR ---
Patient in room CICU 2013. I have received report from Emma and had the opportunity to ask questions and assume patient care.
[2019-07-12] MEDS: K, MAG and/or Phos replacement - Verify level? MC SCH (08:00)
[2019-07-12] MEDS: lactobacillus rhamnosus 10,000 MMU CELLS/CAPSULE CORPAK SCH ×2 (08:49→21:03)
[2019-07-12] MEDS: dexamethasone 4mg/ml inj IV SCH ×2 (08:49→21:03)
[2019-07-12] MEDS: furosemide 40mg/4ml inj IV SCH ×2 (08:49→21:03)
[2019-07-12] MEDS: pantoprazole 40 MG vial IV SCH (08:50)
[2019-07-12] MEDS: mineral oil/petrolatum, white cream 113gm jar TP SCH ×2 (08:50→21:03)
[2019-07-12] MEDS: levoFLOXACIN-Levaquin 500mg/D5 100 ML IV SCH (08:50)
[2019-07-12] MEDS: amiodarone 200mg tablet PO SCH ×2 (11:33→21:02)
--- NOTE | 2019-07-12 11:41 | NUR ---
1030- Critical care rounds- convert amiodarone to PO, Start cardizem 30mg OG Q6hour hold for SBP <100. Plan is for peg tube placement today, trach tomorrow, resume tf when indicated and work on transfer to LTAC.
[2019-07-12] MEDS ORDERED: diatr meglu/diatrizoate 30ml oral sol.-(3 dose) bottle PO ONE ×2 (13:40→22:00)
--- NOTE | 2019-07-12 13:52 | NUR ---
4306- Contacted by angio, not enough contrast in belly for GT placement, repeat dose tonight, keep NPO.
[2019-07-12] MEDS ORDERED: diltiazem 30mg tablet PO SCH (14:00)
--- NOTE | 2019-07-12 14:13 | NUR ---
F/u: Pt NPO for PEG today and pending tracheostomy tomorrow per RN. LLE cellulitis improving per RN. New PALB pending. LBM 07/11. Recommend continue current nutrition support recs via PEG. Will monitor for EN tolerance s/p PEG. Recommendations: 1) Continuous TF via PEG per MD using Vital High Protein at 95mL/hr goal; to provide 2280ml fluid, 1915ml free water, 2280kcals, and 200g protein. Initiate at 20ml/hr and advance 20ml Q8 to goal as tolerated. 2) additional water flush 300 ml q 4 3) prealbumin q /; daily weights 4) Bowel care as needed Addendum: 07/12/19 at [address] Amended: Links added.
--- NOTE | 2019-07-12 18:20 | NUR ---
Patient in room CICU 2012. I have received report from Juan FELICIANO and had the opportunity to ask questions and assume patient care. Patient intubated, not following commands. Opens eyes without purposeful movement, and no purposeful movement noted in general. Will continue to monitor patient.
--- NOTE | 2019-07-12 20:41 | NUR ---
Dr. Waters at bedside, states he will call patient's daughter in AM to obtain consent for trach placement. States to hold [employer].
[2019-07-12] MEDS: diltiazem 30mg tablet NG SCH (21:02)
[2019-07-12] MEDS: insulin glargine (Lantus) pen - multi-dose SQ SCH (21:24)
[2019-07-13] VITALS (25 sets, daily range): BP systolic 110–157; BP diastolic 44–82
[2019-07-13] MEDS: POTASSIUM BICARB 20meq eff tab 20 MEQ TABLET.EFF CORPAK SCH ×3 (00:46→16:00)
[2019-07-13] MEDS: amiodarone/D5 360MG/200ML BAG 200 ML IV SCH ×3 (02:25→10:35)
[2019-07-13 02:31] LABS: BASOPHILS % (AUTO) 0.3 % (0-1); EOSINOPHILS % (AUTO) 0.2 % (0-6); HEMATOCRIT 41.3 % (35.0-45.0); HEMOGLOBIN 13.4 g/dl (12.0-16.0); LYMPHOCYTES # (AUTO) 0.9 X10'3 (1.1-4.8); LYMPHOCYTES % (AUTO) 7.4 % (21-51); MEAN CORPUSCULAR HEMOGLOBIN 28.4 PG (27.0-31.0); MEAN CORPUSCULAR HGB CONC 32.6 g/dL (33.0-36.5); MEAN CORPUSCULAR VOLUME 87.4 FL (78-98); MEAN PLATELET VOLUME 9.2 FL (7.4-10.4); MONOCYTES # (AUTO) 0.8 X10'3 (0-0.9); MONOCYTES % (AUTO) 6.5 % (2-12); NEUTROPHILS # (AUTO) 10.3 X10'3 (1.8-7.7); NEUTROPHILS % (AUTO) 85.6 % (42-75); PLATELET COUNT 302 X10'3 (140-440); RED BLOOD COUNT 4.73 X10'6 (4.20-5.60)
[2019-07-13 02:43] LABS: ALANINE AMINOTRANSFERASE 125 U/L (12-78); ALBUMIN 2.2 G/DL (3.4-5.0); ALBUMIN/GLOBULIN RATIO 0.6 (1.1-1.5); ALKALINE PHOSPHATASE 84 IU/L (46-116); ANION GAP 2 (8-16); ASPARTATE AMINO TRANSFERASE 53 U/L (10-37); BILIRUBIN,TOTAL 1.4 MG/DL (0.1-1.0); BLOOD UREA NITROGEN 26 MG/DL (7-18); BUN/CREATININE RATIO 33.3 (6.6-38.0); CALCIUM 8.6 MG/DL (8.5-10.1); CHLORIDE 97 MMOL/L (99-107); CREATININE 0.78 MG/DL (0.40-0.90); GLUCOSE 178 MG/DL (70-104); POTASSIUM 3.9 MMOL/L (3.5-5.1); SODIUM 137 MMOL/L (135-145); TOTAL CARBON DIOXIDE 38.1 MMOL/L (24-32); TOTAL PROTEIN 6.1 G/DL (6.4-8.2); eGFR 78 ML/MIN
[2019-07-13] MEDS: mineral oil/petrolatum ophthal oint EACHEYE SCH ×4 (03:19→20:31)
[2019-07-13] MEDS: diltiazem 30mg tablet NG SCH ×4 (03:19→20:00)
[2019-07-13] MEDS: insulin regular, human vial - multi-dose SQ SCH ×4 (03:23→20:43)
[2019-07-13 04:51] LABS: ABG BASE EXCESS 9.4 mmol/L (-2.0-3.0); ABG HCO3 32.1 mmol/L (22.0-26.0); ABG OXYGEN SATURATION 96.9 % (95-98); ABG PCO2 (T) 36.1 mmHg (35.0-45.0); ABG PH (T) 7.565 (7.350-7.450); ABG PO2 (T) 80.9 mmHg (83-108); FO2Hb 95.9 % (94-100); MINUTE VOLUME 9 L/min; PATIENT TEMPERATURE 36.5; PEEP 5 cm H2O; RESPIRATORY RATE 16 b/min; RESPIRATORY RATE (OBSERVED) 16 b/min; TIDAL VOLUME 607 mL; TOTAL HEMOGLOBIN 14.4 G/dl (12.0-16.0)
[2019-07-13] MEDS: Dextrose 10%-water IV solution 1,000 ML IV SCH ×2 (04:59→14:25)
--- NOTE | 2019-07-13 06:30 | NUR ---
Report received from JODIE Carter
--- NOTE | 2019-07-13 06:42 | NUR ---
Problems reprioritized. Patient report given, questions answered & plan of care reviewed with Regla FELICIANO.
[2019-07-13] MEDS: lactobacillus rhamnosus 10,000 MMU CELLS/CAPSULE CORPAK SCH ×2 (08:00→20:00)
[2019-07-13] MEDS: K, MAG and/or Phos replacement - Verify level? MC SCH (08:00)
[2019-07-13] MEDS: levoFLOXACIN-Levaquin 500mg/D5 100 ML IV SCH (09:06)
[2019-07-13] MEDS: pantoprazole 40 MG vial IV SCH (09:11)
[2019-07-13] MEDS: dexamethasone 4mg/ml inj IV SCH ×2 (09:12→20:31)
[2019-07-13] MEDS: furosemide 40mg/4ml inj IV SCH ×2 (09:12→20:31)
[2019-07-13] MEDS: amiodarone 200mg tablet PO SCH ×2 (09:12→20:00)
[2019-07-13] MEDS: mineral oil/petrolatum, white cream 113gm jar TP SCH ×2 (09:28→20:31)
[2019-07-13] MEDS ORDERED: fentaNYL/PF 50MCG/1 ML 2ML syringe IV PRN (10:45)
[2019-07-13] MEDS ORDERED: midazolam 2 mg/2 ml injection IV PRN (10:45)
[2019-07-13] MEDS ORDERED: LIDOcaine 1%/PF 5ML 10 MG/ML VIAL SQ ONE (10:45)
[2019-07-13] MEDS ORDERED: glucagon, human recombinant 1mg kit IV ONE (10:50)
[2019-07-13] MEDS ORDERED: midazolam 2 mg/2 ml injection ONE (11:02)
[2019-07-13] MEDS ORDERED: fentaNYL/PF 50MCG/1 ML 2ML syringe ONE ×2 (11:02→15:24)
[2019-07-13] MEDS ORDERED: LIDOcaine 1%/PF 5ML 10 MG/ML VIAL ONE (11:02)
[2019-07-13] MEDS ORDERED: glucagon, human recombinant 1mg kit ONE (11:02)
--- NOTE | 2019-07-13 11:30 | NUR ---
Angio RNs at bedside taking patient for G-tube placement.
[2019-07-13] MEDS ORDERED: iohexol 300 MG/1 ML 50ml polymer ONE (12:02)
--- NOTE | 2019-07-13 12:30 | NUR ---
Patient back from Angio
[2019-07-13] MEDS ORDERED: sevoflurane 250ml liquid IH ONE (14:42)
--- NOTE | 2019-07-13 14:58 | NUR ---
Patient transferred to OR via hospital bed with OR RNs.
[2019-07-13] MEDS ORDERED: ceFOXitin 2 GM ADDVANTGE BAG 50 ML IV ONE (15:17)
--- NOTE | 2019-07-13 16:20 | NUR ---
Patient back from OR
[2019-07-13] MEDS ORDERED: glycopyrrolate 0.2mg/ml inj ONE (16:42)
[2019-07-13] MEDS ORDERED: rocuronium 10mg/ml inj IV ONE (16:42)
--- NOTE | 2019-07-13 18:35 | NUR ---
Patient in room CICU 2012. I have received report from Regla FELICIANO and had the opportunity to ask questions and assume patient care. Patient in bed, trached and on ventilator. Patient saturating at 99% on 35% FIO2. PEG in place, still clamped until 1900 per MD orders. Will continue to monitor patient.
--- NOTE | 2019-07-13 18:44 | NUR ---
Report given to JODIE Carter
[2019-07-13] MEDS: insulin glargine (Lantus) pen - multi-dose SQ SCH (20:44)
[2019-07-14] VITALS (23 sets, daily range): BP systolic 113–148; BP diastolic 59–78
[2019-07-14] MEDS: POTASSIUM BICARB 20meq eff tab 20 MEQ TABLET.EFF CORPAK SCH ×3 (00:34→16:43)
[2019-07-14] MEDS: mineral oil/petrolatum ophthal oint EACHEYE SCH ×4 (01:32→20:44)
[2019-07-14] MEDS: diltiazem 30mg tablet NG SCH ×4 (01:33→20:00)
[2019-07-14] MEDS: Dextrose 10%-water IV solution 1,000 ML IV SCH ×2 (01:33→12:19)
[2019-07-14] MEDS: insulin regular, human vial - multi-dose SQ SCH ×4 (01:43→21:39)
[2019-07-14 03:06] LABS: BASOPHILS % (AUTO) 0.2 % (0-1); EOSINOPHILS % (AUTO) 0.1 % (0-6); HEMATOCRIT 40.7 % (35.0-45.0); HEMOGLOBIN 13.3 g/dl (12.0-16.0); LYMPHOCYTES # (AUTO) 0.9 X10'3 (1.1-4.8); LYMPHOCYTES % (AUTO) 7.5 % (21-51); MEAN CORPUSCULAR HEMOGLOBIN 28.2 PG (27.0-31.0); MEAN CORPUSCULAR HGB CONC 32.6 g/dL (33.0-36.5); MEAN CORPUSCULAR VOLUME 86.6 FL (78-98); MEAN PLATELET VOLUME 9.7 FL (7.4-10.4); MONOCYTES # (AUTO) 0.8 X10'3 (0-0.9); MONOCYTES % (AUTO) 7.3 % (2-12); NEUTROPHILS # (AUTO) 9.7 X10'3 (1.8-7.7); NEUTROPHILS % (AUTO) 84.9 % (42-75); PLATELET COUNT 292 X10'3 (140-440); RED CELL DISTRIBUTION WIDTH 16.3 % (11.5-14.5); WHITE BLOOD COUNT 11.4 X10'3 (4.5-11.0)
[2019-07-14 03:28] LABS: ALANINE AMINOTRANSFERASE 104 U/L (12-78); ALBUMIN 2.3 G/DL (3.4-5.0); ALBUMIN/GLOBULIN RATIO 0.6 (1.1-1.5); ALKALINE PHOSPHATASE 81 IU/L (46-116); ANION GAP 9 (8-16); ASPARTATE AMINO TRANSFERASE 50 U/L (10-37); BILIRUBIN,TOTAL 1.6 MG/DL (0.1-1.0); BLOOD UREA NITROGEN 23 MG/DL (7-18); BUN/CREATININE RATIO 26.1 (6.6-38.0); CALCIUM 8.3 MG/DL (8.5-10.1); CHLORIDE 96 MMOL/L (99-107); CREATININE 0.88 MG/DL (0.40-0.90); GLUCOSE 147 MG/DL (70-104); MAGNESIUM 1.9 MG/DL (1.5-2.4); POTASSIUM 3.2 MMOL/L (3.5-5.1); SODIUM 135 MMOL/L (135-145); TOTAL CARBON DIOXIDE 29.7 MMOL/L (24-32); TOTAL PROTEIN 6.1 G/DL (6.4-8.2); eGFR 67 ML/MIN
--- NOTE | 2019-07-14 06:38 | NUR ---
Problems reprioritized. Patient report given, questions answered & plan of care reviewed with Ernesto RN.
[2019-07-14] MEDS: K, MAG and/or Phos replacement - Verify level? MC SCH (08:00)
[2019-07-14] MEDS: pantoprazole 40 MG vial IV SCH (08:08)
[2019-07-14] MEDS: lactobacillus rhamnosus 10,000 MMU CELLS/CAPSULE CORPAK SCH ×2 (08:08→20:43)
[2019-07-14] MEDS: dexamethasone 4mg/ml inj IV SCH ×2 (08:11→20:43)
[2019-07-14] MEDS: mineral oil/petrolatum, white cream 113gm jar TP SCH ×2 (08:11→20:44)
[2019-07-14] MEDS: amiodarone 200mg tablet PO SCH ×2 (08:11→20:41)
[2019-07-14] MEDS: levoFLOXACIN-Levaquin 500mg/D5 100 ML IV SCH (08:11)
[2019-07-14] MEDS: furosemide 40mg/4ml inj IV SCH ×2 (08:11→20:41)
[2019-07-14] MEDS: enoxaparin 30mg/0.3ml syringe SUBCUT SCH ×2 (08:15→20:44)
[2019-07-14] MEDS: enoxaparin 100mg/ml syringe SUBCUT SCH ×2 (08:15→20:43)
[2019-07-14] MEDS: ipratropium/albuterol 3ml nebule NEB PRN (10:55)
[2019-07-14] MEDS ORDERED: tPA-cathflo 2 MG/2 ml IV flush IVF ONE (12:00)
[2019-07-14] MEDS: scopolamine 1.5mg patch.TD72 TD SCH (13:07)
[2019-07-14] MEDS: ipratropium 0.5 MG/2.5ML nebule IH SCH ×3 (14:30→23:40)
--- NOTE | 2019-07-14 14:31 | NUR ---
CTA of the head ordered and scheduled per MD Fisher however d/t staffing for RT unable to transport pt down to CT scanner. Clarified with RT and husbandry technician. Will attempt again on nightshift.
--- NOTE | 2019-07-14 15:08 | NUR ---
Reassessment: Pt s/p PEG w/ TF to resume at trickle per MD at rounds. LBM 07/12. Will monitor for PEG feed tolerance and additional protein needs. Recommendations: 1) Continuous TF via PEG per MD using Vital High Protein at 95mL/hr goal; to provide 2280ml fluid, 1915ml free water, 2280kcals, and 200g protein. Initiate at 20ml/hr and advance 20ml Q8 to goal as tolerated. 2) additional water flush 300 ml q 4 3) prealbumin q /; daily weights 4) Bowel care as needed Addendum: 07/14/19 at [address] Amended: Links added.
[2019-07-14] MEDS: insulin glargine (Lantus) pen - multi-dose SQ SCH (21:37)
[2019-07-15] VITALS (21 sets, daily range): BP systolic 103–139; BP diastolic 57–89
[2019-07-15] MEDS: Dextrose 10%-water IV solution 1,000 ML IV SCH ×3 (01:44→22:48)
[2019-07-15] MEDS: diltiazem 30mg tablet NG SCH ×4 (02:00→19:10)
[2019-07-15] MEDS: POTASSIUM BICARB 20meq eff tab 20 MEQ TABLET.EFF CORPAK SCH ×3 (02:34→14:56)
[2019-07-15] MEDS: mineral oil/petrolatum ophthal oint EACHEYE SCH ×4 (02:34→19:15)
[2019-07-15] MEDS: insulin regular, human vial - multi-dose SQ SCH ×4 (02:39→20:08)
[2019-07-15 03:01] LABS: HEMOGLOBIN 13.6 g/dl (12.0-16.0)
[2019-07-15 03:04] LABS: BASOPHILS % (AUTO) 0.4 % (0-1); EOSINOPHILS % (AUTO) 0.1 % (0-6); HEMATOCRIT 41.4 % (35.0-45.0); LYMPHOCYTES % (AUTO) 9.2 % (21-51); MEAN CORPUSCULAR HEMOGLOBIN 28.3 PG (27.0-31.0); MEAN CORPUSCULAR HGB CONC 32.8 g/dL (33.0-36.5); MEAN CORPUSCULAR VOLUME 86.2 FL (78-98); MEAN PLATELET VOLUME 9.2 FL (7.4-10.4); MONOCYTES # (AUTO) 0.7 X10'3 (0-0.9); MONOCYTES % (AUTO) 6.6 % (2-12); NEUTROPHILS # (AUTO) 9.5 X10'3 (1.8-7.7); NEUTROPHILS % (AUTO) 83.7 % (42-75); PLATELET COUNT 294 X10'3 (140-440); RED BLOOD COUNT 4.81 X10'6 (4.20-5.60); RED CELL DISTRIBUTION WIDTH 16.4 % (11.5-14.5); WHITE BLOOD COUNT 11.3 X10'3 (4.5-11.0)
[2019-07-15] MEDS: ipratropium 0.5 MG/2.5ML nebule IH SCH ×6 (03:08→23:01)
[2019-07-15 03:32] LABS: ALANINE AMINOTRANSFERASE 89 U/L (12-78); ALBUMIN 2.4 G/DL (3.4-5.0); ALBUMIN/GLOBULIN RATIO 0.6 (1.1-1.5); ALKALINE PHOSPHATASE 84 IU/L (46-116); ANION GAP 12 (8-16); ASPARTATE AMINO TRANSFERASE 49 U/L (10-37); BILIRUBIN,TOTAL 1.8 MG/DL (0.1-1.0); BLOOD UREA NITROGEN 26 MG/DL (7-18); BUN/CREATININE RATIO 26.5 (6.6-38.0); CALCIUM 8.3 MG/DL (8.5-10.1); CHLORIDE 98 MMOL/L (99-107); CREATININE 0.98 MG/DL (0.40-0.90); GLUCOSE 159 MG/DL (70-104); MAGNESIUM 2.2 MG/DL (1.5-2.4); POTASSIUM 3.1 MMOL/L (3.5-5.1); SODIUM 138 MMOL/L (135-145); TOTAL CARBON DIOXIDE 28.3 MMOL/L (24-32); TOTAL PROTEIN 6.4 G/DL (6.4-8.2); eGFR 60 ML/MIN
[2019-07-15] MEDS: potassium Cl 20mEq/100mL bag 100 ML IV PRN (04:38)
[2019-07-15 05:05] LABS: TOTAL CELLS COUNTED 100
[2019-07-15 05:06] LABS: ANISOCYTOSIS 1+; PLATELET ESTIMATE NORMAL
[2019-07-15] MEDS: K, MAG and/or Phos replacement - Verify level? MC SCH (08:00)
[2019-07-15] MEDS: furosemide 40mg/4ml inj IV SCH ×2 (08:36→19:10)
[2019-07-15] MEDS: levoFLOXACIN-Levaquin 500mg/D5 100 ML IV SCH (08:36)
[2019-07-15] MEDS: lactobacillus rhamnosus 10,000 MMU CELLS/CAPSULE CORPAK SCH ×2 (08:36→19:15)
[2019-07-15] MEDS: pantoprazole 40 MG vial IV SCH (08:36)
[2019-07-15] MEDS: amiodarone 200mg tablet PO SCH ×2 (08:36→19:09)
[2019-07-15] MEDS: dexamethasone 4mg/ml inj IV SCH ×2 (08:36→19:10)
[2019-07-15] MEDS: enoxaparin 30mg/0.3ml syringe SUBCUT SCH ×2 (08:38→19:11)
[2019-07-15] MEDS: enoxaparin 100mg/ml syringe SUBCUT SCH ×2 (08:39→19:14)
[2019-07-15] MEDS: mineral oil/petrolatum, white cream 113gm jar TP SCH ×2 (09:00→19:15)
--- NOTE | 2019-07-15 14:57 | NUR ---
TF rate increased to 80 per orders
--- NOTE | 2019-07-15 18:57 | NUR ---
Patient in room CICU 2013. I have received report from edie lester and had the opportunity to ask questions and assume patient care.
--- NOTE | 2019-07-15 19:15 | NUR ---
gone to mri from [id number]
[2019-07-15] MEDS: insulin glargine (Lantus) pen - multi-dose SQ SCH (20:09)
[2019-07-15] MEDS: ipratropium/albuterol 3ml nebule NEB PRN (23:00)
[2019-07-16] VITALS (24 sets, daily range): BP systolic 96–140; BP diastolic 43–75
[2019-07-16] MEDS: POTASSIUM BICARB 20meq eff tab 20 MEQ TABLET.EFF CORPAK SCH ×2 (00:03→08:00)
[2019-07-16] MEDS: mineral oil/petrolatum ophthal oint EACHEYE SCH ×4 (01:32→20:30)
[2019-07-16] MEDS: diltiazem 30mg tablet NG SCH (01:32)
[2019-07-16] MEDS: insulin regular, human vial - multi-dose SQ SCH ×4 (01:42→20:33)
[2019-07-16 02:29] LABS: BASOPHILS % (AUTO) 0.4 % (0-1); EOSINOPHILS % (AUTO) 0.2 % (0-6); HEMATOCRIT 41.8 % (35.0-45.0); HEMOGLOBIN 13.7 g/dl (12.0-16.0); LYMPHOCYTES # (AUTO) 0.9 X10'3 (1.1-4.8); LYMPHOCYTES % (AUTO) 8.7 % (21-51); MEAN CORPUSCULAR HEMOGLOBIN 28.3 PG (27.0-31.0); MEAN CORPUSCULAR HGB CONC 32.8 g/dL (33.0-36.5); MEAN CORPUSCULAR VOLUME 86.5 FL (78-98); MEAN PLATELET VOLUME 9.5 FL (7.4-10.4); MONOCYTES # (AUTO) 0.6 X10'3 (0-0.9); MONOCYTES % (AUTO) 6.2 % (2-12); NEUTROPHILS # (AUTO) 8.8 X10'3 (1.8-7.7); NEUTROPHILS % (AUTO) 84.5 % (42-75); PLATELET COUNT 261 X10'3 (140-440); RED BLOOD COUNT 4.84 X10'6 (4.20-5.60); RED CELL DISTRIBUTION WIDTH 16.2 % (11.5-14.5); WHITE BLOOD COUNT 10.4 X10'3 (4.5-11.0)
[2019-07-16 02:33] LABS: ALANINE AMINOTRANSFERASE 74 U/L (12-78); ALBUMIN 2.4 G/DL (3.4-5.0); ALBUMIN/GLOBULIN RATIO 0.6 (1.1-1.5); ALKALINE PHOSPHATASE 84 IU/L (46-116); ANION GAP 4 (8-16); ASPARTATE AMINO TRANSFERASE 43 U/L (10-37); BILIRUBIN,TOTAL 0.8 MG/DL (0.1-1.0); BLOOD UREA NITROGEN 35 MG/DL (7-18); BUN/CREATININE RATIO 41.2 (6.6-38.0); CALCIUM 8.5 MG/DL (8.5-10.1); CHLORIDE 101 MMOL/L (99-107); CREATININE 0.85 MG/DL (0.40-0.90); GLUCOSE 199 MG/DL (70-104); MAGNESIUM 2.4 MG/DL (1.5-2.4); POTASSIUM 3.9 MMOL/L (3.5-5.1); SODIUM 138 MMOL/L (135-145); TOTAL CARBON DIOXIDE 32.8 MMOL/L (24-32); TOTAL PROTEIN 6.5 G/DL (6.4-8.2); eGFR 70 ML/MIN
[2019-07-16] MEDS: ipratropium 0.5 MG/2.5ML nebule IH SCH ×6 (03:03→23:28)
[2019-07-16] MEDS: K, MAG and/or Phos replacement - Verify level? MC SCH (08:00)
[2019-07-16] MEDS: dexamethasone 4mg/ml inj IV SCH ×2 (08:04→20:29)
[2019-07-16] MEDS: pantoprazole 40 MG vial IV SCH (08:04)
[2019-07-16] MEDS: furosemide 40mg/4ml inj IV SCH ×2 (08:04→20:29)
[2019-07-16] MEDS: lactobacillus rhamnosus 10,000 MMU CELLS/CAPSULE CORPAK SCH ×2 (08:04→20:29)
[2019-07-16] MEDS: levoFLOXACIN-Levaquin 500mg/D5 100 ML IV SCH (08:04)
[2019-07-16] MEDS: mineral oil/petrolatum, white cream 113gm jar TP SCH ×2 (08:05→20:30)
[2019-07-16] MEDS: enoxaparin 30mg/0.3ml syringe SUBCUT SCH ×2 (08:05→20:28)
[2019-07-16] MEDS ORDERED: gadobutrol 10mmol/10ml inj. IV ONE ×2 (08:12)
[2019-07-16] MEDS: amiodarone 200mg tablet PO SCH (08:57)
[2019-07-16] MEDS: enoxaparin 100mg/ml syringe SUBCUT SCH ×2 (08:57→20:28)
--- NOTE | 2019-07-16 10:00 | NUR ---
Per RT, does not feel comfortable doing trach care.
--- NOTE | 2019-07-16 14:29 | NUR ---
Reassessment: Patient continues with PEG feedings now at goal rate. Recent trach placement with continued mechanical ventilation. Patient's weight fluctuated initially in admission likely with fluids as patient was documented with edema and receiving lasix. Noted current weight is 16.2 kg less than admission weight using bedscale. This may also be reflected with fluid status and nutrition support calculated to meet range of patient's estimated nutrient needs on vent using Adjusted IBW providing permissive underfeeding per [facility] critical care guidelines and prevention of protein catabolism, as evidenced by prealbumin of 39 mg/dl, albumin is 2.4 L. Edema present, bilateral generalized 2+ pitting. Pt had been admitted with AMS, respiratory fail, LLE cellulitis, and sepsis Will continue to follow Recommendations: 1) Continuous TF per PEG using Vital High Protein at 95mL/hr goal; to provide 2280ml fluid, 1915ml free water, 2280kcals, and 200g protein. 2) additional water flush 300 ml q 4 3) prealbumin q /; daily weights 4) Bowel care as needed Addendum: 07/16/19 at [address] Amended: Links added.
--- NOTE | 2019-07-16 16:00 | NUR ---
Dr. Oconnor informed regarding persistent oozing around trach site. Per trach ties not ready to come out. Watch H&H per
--- NOTE | 2019-07-16 18:20 | NUR ---
Patient in room CICU 2013. I have received report and had the opportunity to ask questions and assume patient care.
--- NOTE | 2019-07-16 19:00 | NUR ---
pt trach remains sutured in and continues to bleed and ooze. gauze applied.
[2019-07-16] MEDS: insulin glargine (Lantus) pen - multi-dose SQ SCH (20:34)
[2019-07-17] VITALS (24 sets, daily range): BP systolic 96–118; BP diastolic 45–80
[2019-07-17] MEDS: mineral oil/petrolatum ophthal oint EACHEYE SCH ×4 (01:57→20:47)
--- NOTE | 2019-07-17 02:00 | NUR ---
trach still bleeding and oozing. personal lines account manager colleen aware.
[2019-07-17] MEDS: insulin regular, human vial - multi-dose SQ SCH ×4 (02:02→20:51)
[2019-07-17 03:03] LABS: ANION GAP 7 (8-16); BLOOD UREA NITROGEN 40 MG/DL (7-18); BUN/CREATININE RATIO 45.5 (6.6-38.0); CALCIUM 8.8 MG/DL (8.5-10.1); CHLORIDE 103 MMOL/L (99-107); CREATININE 0.88 MG/DL (0.40-0.90); GLUCOSE 159 MG/DL (70-104); POTASSIUM 3.2 MMOL/L (3.5-5.1); SODIUM 143 MMOL/L (135-145); TOTAL CARBON DIOXIDE 32.7 MMOL/L (24-32); eGFR 67 ML/MIN
[2019-07-17 03:04] LABS: ALANINE AMINOTRANSFERASE 75 U/L (12-78); ALBUMIN 2.6 G/DL (3.4-5.0); ALBUMIN/GLOBULIN RATIO 0.7 (1.1-1.5); ALKALINE PHOSPHATASE 85 IU/L (46-116); ASPARTATE AMINO TRANSFERASE 49 U/L (10-37); BILIRUBIN,TOTAL 0.8 MG/DL (0.1-1.0); MAGNESIUM 2.3 MG/DL (1.5-2.4); TOTAL PROTEIN 6.6 G/DL (6.4-8.2)
[2019-07-17 03:08] LABS: BASOPHILS % (AUTO) 0.2 % (0-1); EOSINOPHILS % (AUTO) 0 % (0-6); HEMATOCRIT 41.8 % (35.0-45.0); HEMOGLOBIN 13.5 g/dl (12.0-16.0); LYMPHOCYTES # (AUTO) 0.9 X10'3 (1.1-4.8); LYMPHOCYTES % (AUTO) 8.2 % (21-51); MEAN CORPUSCULAR HEMOGLOBIN 28.2 PG (27.0-31.0); MEAN CORPUSCULAR HGB CONC 32.2 g/dL (33.0-36.5); MEAN CORPUSCULAR VOLUME 87.4 FL (78-98); MEAN PLATELET VOLUME 9.4 FL (7.4-10.4); MONOCYTES # (AUTO) 0.6 X10'3 (0-0.9); MONOCYTES % (AUTO) 5.4 % (2-12); NEUTROPHILS # (AUTO) 9.2 X10'3 (1.8-7.7); NEUTROPHILS % (AUTO) 86.2 % (42-75); PLATELET COUNT 255 X10'3 (140-440); RED BLOOD COUNT 4.78 X10'6 (4.20-5.60); RED CELL DISTRIBUTION WIDTH 16.2 % (11.5-14.5); WHITE BLOOD COUNT 10.6 X10'3 (4.5-11.0)
[2019-07-17] MEDS: ipratropium 0.5 MG/2.5ML nebule IH SCH ×6 (04:00→23:14)
[2019-07-17] MEDS: potassium Cl 20mEq/100mL bag 100 ML IV PRN ×2 (04:01→08:24)
--- NOTE | 2019-07-17 04:05 | NUR ---
went into the pt room to perform mouth care and heard a crunching sound. looked in pt mouth to discover she had bitten one of her teeth loose. tooth is still attached. will continue to monitor
[2019-07-17] MEDS: enoxaparin 100mg/ml syringe SUBCUT SCH ×2 (08:00→20:46)
[2019-07-17] MEDS: amiodarone 200mg tablet PO SCH (08:00)
[2019-07-17] MEDS: pantoprazole 40 MG vial IV SCH (08:12)
[2019-07-17] MEDS: dexamethasone 4mg/ml inj IV SCH ×2 (08:12→20:46)
[2019-07-17] MEDS: furosemide 40mg/4ml inj IV SCH ×2 (08:12→20:45)
[2019-07-17] MEDS: lactobacillus rhamnosus 10,000 MMU CELLS/CAPSULE CORPAK SCH ×2 (08:12→20:46)
[2019-07-17] MEDS: levoFLOXACIN-Levaquin 500mg/D5 100 ML IV SCH (08:12)
[2019-07-17] MEDS: enoxaparin 30mg/0.3ml syringe SUBCUT SCH ×2 (08:13→20:46)
[2019-07-17] MEDS: mineral oil/petrolatum, white cream 113gm jar TP SCH ×2 (08:13→20:46)
[2019-07-17] MEDS: K, MAG and/or Phos replacement - Verify level? MC SCH (08:23)
--- NOTE | 2019-07-17 10:00 | NUR ---
Per RT, does not feel comfortable doing trach care.
[2019-07-17] MEDS: scopolamine 1.5mg patch.TD72 TD SCH (15:30)
[2019-07-17] MEDS: acetaminophen 325mg tablet CORPAK PRN (18:12)
--- NOTE | 2019-07-17 18:23 | NUR ---
Patient in room CICU 2013. I have received report and had the opportunity to ask questions and assume patient care.
--- NOTE | 2019-07-17 19:00 | NUR ---
pt trach continues to bleed. will continue to monitor. md aware
[2019-07-17] MEDS: insulin glargine (Lantus) pen - multi-dose SQ SCH (20:52)
[2019-07-18] VITALS (23 sets, daily range): BP systolic 96–124; BP diastolic 43–67
[2019-07-18] MEDS: insulin regular, human vial - multi-dose SQ SCH ×4 (02:44→20:14)
[2019-07-18] MEDS: mineral oil/petrolatum ophthal oint EACHEYE SCH ×4 (02:49→20:06)
[2019-07-18 03:00] LABS: BASOPHILS # (AUTO) 0.1 X10'3 (0-0.2); BASOPHILS % (AUTO) 0.6 % (0-1); EOSINOPHILS % (AUTO) 0.1 % (0-6); HEMATOCRIT 41.2 % (35.0-45.0); HEMOGLOBIN 13.3 g/dl (12.0-16.0); LYMPHOCYTES # (AUTO) 1.3 X10'3 (1.1-4.8); LYMPHOCYTES % (AUTO) 9.4 % (21-51); MEAN CORPUSCULAR HEMOGLOBIN 27.9 PG (27.0-31.0); MEAN CORPUSCULAR HGB CONC 32.3 g/dL (33.0-36.5); MEAN CORPUSCULAR VOLUME 86.5 FL (78-98); MEAN PLATELET VOLUME 8.7 FL (7.4-10.4); MONOCYTES # (AUTO) 0.7 X10'3 (0-0.9); MONOCYTES % (AUTO) 5.2 % (2-12); NEUTROPHILS # (AUTO) 11.8 X10'3 (1.8-7.7); NEUTROPHILS % (AUTO) 84.7 % (42-75); PLATELET COUNT 238 X10'3 (140-440); RED BLOOD COUNT 4.77 X10'6 (4.20-5.60); RED CELL DISTRIBUTION WIDTH 16.4 % (11.5-14.5); WHITE BLOOD COUNT 13.9 X10'3 (4.5-11.0)
[2019-07-18 03:08] LABS: ALANINE AMINOTRANSFERASE 76 U/L (12-78); ALBUMIN 2.7 G/DL (3.4-5.0); ALBUMIN/GLOBULIN RATIO 0.7 (1.1-1.5); ALKALINE PHOSPHATASE 97 IU/L (46-116); ANION GAP 7 (8-16); ASPARTATE AMINO TRANSFERASE 51 U/L (10-37); BILIRUBIN,TOTAL 1.1 MG/DL (0.1-1.0); BLOOD UREA NITROGEN 52 MG/DL (7-18); BUN/CREATININE RATIO 55.9 (6.6-38.0); CALCIUM 8.7 MG/DL (8.5-10.1); CHLORIDE 105 MMOL/L (99-107); CREATININE 0.93 MG/DL (0.40-0.90); GLUCOSE 154 MG/DL (70-104); MAGNESIUM 2.5 MG/DL (1.5-2.4); POTASSIUM 3.6 MMOL/L (3.5-5.1); SODIUM 146 MMOL/L (135-145); TOTAL CARBON DIOXIDE 34.5 MMOL/L (24-32); TOTAL PROTEIN 6.8 G/DL (6.4-8.2); eGFR 63 ML/MIN
[2019-07-18] MEDS: ipratropium 0.5 MG/2.5ML nebule IH SCH ×6 (03:57→23:07)
--- NOTE | 2019-07-18 07:07 | NUR ---
pt. oral secretions running off into trach site since yesterday, saturating trach dressing along with oozing from trach site. Addendum: 07/18/19 at 0709 by Marce Tan RN frequent oral care and suctioning required both yesterday and continued today.
[2019-07-18] MEDS: K, MAG and/or Phos replacement - Verify level? MC SCH (08:00)
[2019-07-18] MEDS: amiodarone 200mg tablet PO SCH (08:00)
[2019-07-18] MEDS: pantoprazole 40 MG vial IV SCH (08:20)
[2019-07-18] MEDS: lactobacillus rhamnosus 10,000 MMU CELLS/CAPSULE CORPAK SCH ×2 (08:20→20:05)
[2019-07-18] MEDS: levoFLOXACIN-Levaquin 500mg/D5 100 ML IV SCH (08:29)
[2019-07-18] MEDS: furosemide 40mg/4ml inj IV SCH ×2 (08:29→20:06)
[2019-07-18] MEDS: enoxaparin 30mg/0.3ml syringe SUBCUT SCH ×2 (08:30→20:05)
[2019-07-18] MEDS: dexamethasone 4mg/ml inj IV SCH ×2 (08:31→20:06)
[2019-07-18] MEDS: mineral oil/petrolatum, white cream 113gm jar TP SCH ×2 (08:31→20:06)
[2019-07-18] MEDS: enoxaparin 100mg/ml syringe SUBCUT SCH ×2 (09:53→20:05)
[2019-07-18] MEDS: acetaminophen 325mg tablet CORPAK PRN ×2 (11:04→16:54)
--- NOTE | 2019-07-18 18:20 | NUR ---
Patient in room CICU 2012. I have received report from Angie FELICIANO and had the opportunity to ask questions and assume patient care. Patient trached and on ventilator. Settings at 35% FIO2,. A/C PC mode. Patient overbreathing ventilator at 22 breaths/min, saturating at 98%. Patient occasionally opens eyes spontaneously without purposeful movement, does not follow any commands and postures with heavy physical stimulus. Will continue to monitor patient closely.
[2019-07-18] MEDS: insulin glargine (Lantus) pen - multi-dose SQ SCH (20:15)
--- NOTE | 2019-07-18 21:14 | NUR ---
Lisa art cath changed on days Addendum: 07/18/19 at 2115 by Jerrica Maier RT Amended: Links added.
--- NOTE | 2019-07-18 23:43 | NUR ---
Trach site looking poorly, still actively bleeding from trach site as well as orally. RN has been changing out gauzes both at trach site and around the neck area as all oral secretions have been leaking down and soaking the trach ties since pt received trach in OR, MD is aware. I received in report that the MD wasn't very concerned about the bleeding since her H&H was stable. I also received in report that we were not to touch the trach ties or under the flange due to pt's high rish airway and stitches still in place. This needs to be verified with MD. Pt's trach became too saturated to leave on day shift so her trach ties and Optifoam were changed out, as well as the rest of the trach care, per RT intervention, without incident. Trach ties are already bloody again. JODIE Carter has also been changing out the gauze and Optifoam as needed. Will try and get verification on what we can do since her stitches are still in place and will cont to monitor pt's airway, trach site closely.
[2019-07-19] VITALS (24 sets, daily range): BP systolic 89–121; BP diastolic 60–96
[2019-07-19] MEDS: insulin regular, human vial - multi-dose SQ SCH ×4 (02:32→20:44)
[2019-07-19] MEDS: mineral oil/petrolatum ophthal oint EACHEYE SCH ×4 (02:38→20:31)
--- NOTE | 2019-07-19 02:58 | NUR ---
Patient trialed on CPAP mode on vent by RT. Patient tolerated well for approx. 1 hr, then went apneic. Patient appears to be neuro breathing, will breath in 30s and then RR drops to less than 10 or goes apneic. Patient placed back on rate, RT aware.
[2019-07-19 03:03] LABS: BASOPHILS % (AUTO) 0.2 % (0-1); EOSINOPHILS % (AUTO) 0 % (0-6); HEMATOCRIT 39.2 % (35.0-45.0); HEMOGLOBIN 12.6 g/dl (12.0-16.0); LYMPHOCYTES # (AUTO) 1.2 X10'3 (1.1-4.8); LYMPHOCYTES % (AUTO) 9.1 % (21-51); MEAN CORPUSCULAR HEMOGLOBIN 27.9 PG (27.0-31.0); MEAN CORPUSCULAR HGB CONC 32.2 g/dL (33.0-36.5); MEAN CORPUSCULAR VOLUME 86.6 FL (78-98); MEAN PLATELET VOLUME 8.9 FL (7.4-10.4); MONOCYTES # (AUTO) 0.7 X10'3 (0-0.9); MONOCYTES % (AUTO) 5.1 % (2-12); NEUTROPHILS # (AUTO) 11.7 X10'3 (1.8-7.7); NEUTROPHILS % (AUTO) 85.6 % (42-75); PLATELET COUNT 213 X10'3 (140-440); RED BLOOD COUNT 4.53 X10'6 (4.20-5.60); RED CELL DISTRIBUTION WIDTH 16.1 % (11.5-14.5); WHITE BLOOD COUNT 13.7 X10'3 (4.5-11.0)
[2019-07-19] MEDS: ipratropium 0.5 MG/2.5ML nebule IH SCH ×5 (03:03→19:04)
[2019-07-19 03:21] LABS: ALANINE AMINOTRANSFERASE 75 U/L (12-78); ALBUMIN 2.7 G/DL (3.4-5.0); ALBUMIN/GLOBULIN RATIO 0.7 (1.1-1.5); ALKALINE PHOSPHATASE 121 IU/L (46-116); ANION GAP 9 (8-16); ASPARTATE AMINO TRANSFERASE 53 U/L (10-37); BILIRUBIN,TOTAL 1.2 MG/DL (0.1-1.0); BLOOD UREA NITROGEN 56 MG/DL (7-18); BUN/CREATININE RATIO 55.4 (6.6-38.0); CALCIUM 8.6 MG/DL (8.5-10.1); CHLORIDE 103 MMOL/L (99-107); CREATININE 1.01 MG/DL (0.40-0.90); GLUCOSE 244 MG/DL (70-104); MAGNESIUM 2.2 MG/DL (1.5-2.4); SODIUM 144 MMOL/L (135-145); TOTAL CARBON DIOXIDE 31.9 MMOL/L (24-32); TOTAL PROTEIN 6.8 G/DL (6.4-8.2); eGFR 58 ML/MIN
[2019-07-19] MEDS: potassium Cl 20mEq/100mL bag 100 ML IV PRN ×4 (04:15→10:45)
[2019-07-19 05:01] LABS: ABG BASE EXCESS 8.2 mmol/L (-2.0-3.0); ABG HCO3 31.4 mmol/L (22.0-26.0); ABG OXYGEN SATURATION 96.8 % (95-98); ABG PH (T) 7.515 (7.350-7.450); ABG PO2 (T) 89.7 mmHg (83-108); ALLEN'S TEST POSITIVE; FO2Hb 96.8 % (94-100); PATIENT TEMPERATURE 37.9; RESPIRATORY RATE 12 b/min; TOTAL HEMOGLOBIN 13.4 G/dl (12.0-16.0)
--- NOTE | 2019-07-19 06:31 | NUR ---
Problems reprioritized. Patient report given, questions answered & plan of care reviewed with Elisha FELICIANO.
--- NOTE | 2019-07-19 06:59 | NUR ---
Patient in room CICU 2012. I have received report from Emma FELICIANO and had the opportunity to ask questions and assume patient care. patient on ventilator with a trach placement, trach site is has large amounts of bloody drainage, patient also has blood drainage from her mouth, with any movement or oral care patient postures decerebrate. Will randomly open eyes, will not follow commands. rivers draining to gravity, rectal bag in place draining to gravity as well, vial signs stable no signs or symptoms of distress will continue to monitor
[2019-07-19] MEDS: K, MAG and/or Phos replacement - Verify level? MC SCH (08:00)
[2019-07-19] MEDS: dexamethasone 4mg/ml inj IV SCH ×2 (08:04→20:31)
[2019-07-19] MEDS: furosemide 40mg/4ml inj IV SCH ×2 (08:04→20:31)
[2019-07-19] MEDS: pantoprazole 40 MG vial IV SCH (08:06)
[2019-07-19] MEDS: levoFLOXACIN-Levaquin 500mg/D5 100 ML IV SCH (08:07)
[2019-07-19] MEDS: amiodarone 200mg tablet PO SCH (08:07)
[2019-07-19] MEDS: lactobacillus rhamnosus 10,000 MMU CELLS/CAPSULE CORPAK SCH ×2 (08:15→20:31)
[2019-07-19] MEDS: enoxaparin 30mg/0.3ml syringe SUBCUT SCH (08:15)
[2019-07-19] MEDS: mineral oil/petrolatum, white cream 113gm jar TP SCH ×2 (08:16→20:31)
[2019-07-19] MEDS: enoxaparin 100mg/ml syringe SUBCUT SCH (08:16)
--- NOTE | 2019-07-19 09:20 | NUR ---
spoke to Dr. Fisher during pre-rounds about her continued bleeding from the mouth, trach and peg site he stated to hold the lovenox until other maya directed. No other new orders at this time
[2019-07-19] MEDS ORDERED: vancomycin/NS 1 GM ADD-VANTAGE 250 ML IV SCH (11:00)
[2019-07-19] MEDS: cefepime 1GM in D5W 50mL 50 ML IV SCH ×2 (11:49→16:18)
[2019-07-19] MEDS ORDERED: gelatin sponge, absorbable (Gelfoam 100) sponge TP ONE (14:45)
[2019-07-19] MEDS ORDERED: gelatin sponge, absorbable (Gelfoam-100 compressed) sponge TP ONE (14:45)
[2019-07-19] MEDS ORDERED: cefepime 1GM in D5W 50mL 50 ML IV SCH (16:00)
[2019-07-19 17:11] LABS: HEMATOCRIT 35.6 % (35.0-45.0); HEMOGLOBIN 11.5 g/dl (12.0-16.0); MEAN CORPUSCULAR HEMOGLOBIN 28.2 PG (27.0-31.0); MEAN CORPUSCULAR HGB CONC 32.3 g/dL (33.0-36.5); MEAN CORPUSCULAR VOLUME 87.3 FL (78-98); MEAN PLATELET VOLUME 8.7 FL (7.4-10.4); PLATELET COUNT 185 X10'3 (140-440); RED BLOOD COUNT 4.08 X10'6 (4.20-5.60); RED CELL DISTRIBUTION WIDTH 16.2 % (11.5-14.5); WHITE BLOOD COUNT 13.7 X10'3 (4.5-11.0)
--- NOTE | 2019-07-19 18:23 | NUR ---
Problems reprioritized. Patient report given, questions answered & plan of care reviewed with Emma FELICIANO.
--- NOTE | 2019-07-19 18:25 | NUR ---
Patient in room CICU 2012. I have received report from Elisha FELICIANO and had the opportunity to ask questions and assume patient care. Patient making no purposeful movements with limbs, all sedation off and has been for over a week. Eyes open spontaneously, but also without any purposeful movement, fixed upper left gaze. Patient has trach and is saturating at 92% on current ventilator settings. Moderate amounts of blood draining from trach site, current dressing already becoming saturated. Blood also noted in ET tubing and in mouth. Will continue to monitor patient closely.
[2019-07-19 20:38] LABS: BASOPHILS % (AUTO) 0.1 % (0-1); EOSINOPHILS % (AUTO) 0.1 % (0-6); HEMATOCRIT 36.2 % (35.0-45.0); HEMOGLOBIN 11.4 g/dl (12.0-16.0); LYMPHOCYTES # (AUTO) 1.6 X10'3 (1.1-4.8); LYMPHOCYTES % (AUTO) 8.9 % (21-51); MEAN CORPUSCULAR HEMOGLOBIN 27.8 PG (27.0-31.0); MEAN CORPUSCULAR HGB CONC 31.5 g/dL (33.0-36.5); MEAN CORPUSCULAR VOLUME 88.1 FL (78-98); MEAN PLATELET VOLUME 8.8 FL (7.4-10.4); MONOCYTES # (AUTO) 1.1 X10'3 (0-0.9); MONOCYTES % (AUTO) 5.9 % (2-12); NEUTROPHILS # (AUTO) 15.1 X10'3 (1.8-7.7); PLATELET COUNT 201 X10'3 (140-440); RED BLOOD COUNT 4.11 X10'6 (4.20-5.60); RED CELL DISTRIBUTION WIDTH 16.1 % (11.5-14.5); WHITE BLOOD COUNT 17.7 X10'3 (4.5-11.0)
[2019-07-19 20:44] LABS: PARTIAL THROMBOPLASTIN TIME 24 SECONDS (22-32)
[2019-07-19] MEDS: insulin glargine (Lantus) pen - multi-dose SQ SCH (20:45)
--- NOTE | 2019-07-19 21:10 | NUR ---
Called to pt's bedside by JODIE robledo due to pt desaturating, excessive bleeding and possible clots while suctioning pt. Upon arrival to the floor, another RN, Nazanin Reeves confirmed with me that is was a fairly large clot that was suctioned up and is blocking the inline suction and they are concerned about the airway being occluded. At pt's bedside I was able to change out the inline suction catheter. While also changing the trachs innler cannula, pt coughed and cleared a very large clot along with more blood. Pictures taken to show Inner cannula successfully changed. I did not change the gauze or trach ties, which are already soaked from bleeding from both oral secretions and from trach. [facility] reported that they did full trach care, changing the trach ties, inner cannula, inline suction, cleaning stoma site and placing gauze along with RN. Stitches area also still in place. Emma to contact Dr. Oconnor, I will try and get clarified what RT is to do and not do as far as trach care due to the fact that this pt is a high risk difficult airway and has stiches in place with excessive bleeding. Will cont to monitor and treat pt according to orders. Addendum: 07/19/19 at 2117 by Jerrica Maier RT Amended: Links added.
[2019-07-19] MEDS ORDERED: albuterol 2.5 MG/3 ML nebule NEB PRN (21:45)
[2019-07-19] MEDS ORDERED: propofol 1000mg/100ml bottle 100 ML IV SCH (21:48)
[2019-07-19] MEDS ORDERED: propofol 1000mg/100ml bottle 100 ML IV ONE (21:52)
[2019-07-19] MEDS ORDERED: epiNEPHrine 1 mg/ml inj ONE ×2 (22:04→22:06)
[2019-07-19] MEDS ORDERED: epiNEPHrine 1 mg/ml 30ml MDV ONE (22:04)
[2019-07-19] MEDS ORDERED: epiNEPHrine 0.1mg/ml 10ml syringe ONE (22:05)
--- NOTE | 2019-07-19 22:10 | NUR ---
Pt vent started alarming for and I noticed she wasn't getting her volumes. Another RT with me at beside to help suction while we disconnected from the vent and hand ventilated pt. A small clot was removed from the airway. Pt able to ventilate again on the vent. Makenzie also present to perform therapeutic bronch at bedside, also possibly clot removal. See [facility] notes Addendum: 07/19/19 at 2334 by Jerrica Maier RT Amended: Links added.
[2019-07-19] MEDS ORDERED: Thrombin (Bovine) 5,000 unit vial TP ONE (22:35)
[2019-07-19] MEDS ORDERED: tPA-cathflo 2 MG/2 ml IV flush IVF ONE (22:35)
[2019-07-19] MEDS ORDERED: iohexol 300mg/ml 100ml inj. ONE (22:36)
--- NOTE | 2019-07-19 22:51 | NUR ---
1929: Son and daughter at bedside. Patient started to desaturate and appeared to be trying to cough. Bloody drainage coming out of mouth, saturating trach dressing, and coming into ventilator tubing. Patient suctioned with lavages, small clots aspirated with deep tracheal suction. Patient began ventilating after this with oxygen back up to 95%. Family witnessed episode. Questions answered, explained that patient has been bleeding from site, but that her lab-work is being monitored for drops in HH, as well as that blood thinners were stopped. Family left bedside. 2034:Patient began to desaturate once more, appeared to be trying to cough again. Attempted to suction, small clots visualized in trach tubing. RT paged. RT showed up to bedside to change inner cannula. While disconnecting ventilator from trach tubing, patient coughed large bright red clot. HH/coags drawn. 2099:Call made to Dr. Oconnor to notify that patient's bleeding has increased significantly, is now coming out of vent tubing and mouth. Notified that large clot was coughed out by patient, that lovenox was stopped today, and that hematology and coags were normal. States to have June call Dr. Banegas to bronch patient. June notified. 2199: Patient once again began to desaturate, but this time was not receiving tidal volumes or ventilating. Patient bagged by RT with some resistance. Moderate-sized clot coughed up by patient. Patient then began to ventilate, oxygen level went up. 2199:Dr. Banegas at bedside to bronch patient, witnessed clot that patient coughed up. Patient placed on diprivan for procedure due to tachypnea and elevated HR. RT, supercharger repair supervisor, and primary RN all at bedside. Airway visualized and clear, no clots or blood noted in airways. Patient tolerated procedure well. 2121:Dr. Oconnor at bedside to assess patient. Informed by Dr. Banegas that patient's airway was clear during bronch. Dr. Oconnor assessed trach site, witnessed the moderate amount of sanguineous drainage draining from trach site. States to order CTA of neck/chest to r/o fistula. At this time, patient is in no apparent distress and vitals are WNL and is receiving adequate tidal volumes. Dr. Banegas stated to order topical thrombin to stop bleeding from site and to apply PRN. Foam gel applied to site in meantime to stop bleeding from site. 2300:Patient taken to CT and brought back in stable condition without any complications. Saturating at 97% on 45% FIO2. Site not bleeding at this time. Will limit movement of patient to allow site to clot. Will continue to monitor patient closely.
[2019-07-19] MEDS: ipratropium/albuterol 3ml nebule NEB SCH (23:19)
--- NOTE | 2019-07-19 23:37 | NUR ---
Dr. Oconnor came in to check pt due to excessive bleeding. Recieved verbal okay from Dr. Oconnor for RT to change out trach ties as needed even with stitches still in place. He stated that if her trach comes out to "get it back in venkat", extra trach kit, obturator and ambu bag is at bedside. Will cont to monitor Addendum: 07/20/19 at 0541 by Jerrica Maier RT Amended: Links added.
[2019-07-20] VITALS (16 sets, daily range): BP systolic 91–116; BP diastolic 52–72
[2019-07-20] MEDS: ipratropium 0.5 MG/2.5ML nebule IH SCH
[2019-07-20] MEDS: cefepime 1GM in D5W 50mL 50 ML IV SCH ×2 (01:05→07:36)
[2019-07-20] MEDS: insulin regular, human vial - multi-dose SQ SCH ×3 (02:07→13:40)
[2019-07-20] MEDS: mineral oil/petrolatum ophthal oint EACHEYE SCH ×3 (02:08→13:36)
[2019-07-20] MEDS ORDERED: tPA-cathflo 2 MG/2 ml IV flush IVF ONE (02:35)
[2019-07-20 02:45] LABS: PARTIAL THROMBOPLASTIN TIME 23 SECONDS (22-32)
[2019-07-20 02:46] LABS: BASOPHILS % (AUTO) 0.2 % (0-1); EOSINOPHILS % (AUTO) 0 % (0-6); HEMATOCRIT 29.5 % (35.0-45.0); HEMOGLOBIN 9.5 g/dl (12.0-16.0); LYMPHOCYTES # (AUTO) 1.1 X10'3 (1.1-4.8); LYMPHOCYTES % (AUTO) 6.7 % (21-51); MEAN CORPUSCULAR HEMOGLOBIN 28.3 PG (27.0-31.0); MEAN CORPUSCULAR HGB CONC 32.3 g/dL (33.0-36.5); MEAN CORPUSCULAR VOLUME 87.7 FL (78-98); MONOCYTES # (AUTO) 0.7 X10'3 (0-0.9); NEUTROPHILS # (AUTO) 14.5 X10'3 (1.8-7.7); NEUTROPHILS % (AUTO) 89.1 % (42-75); PLATELET COUNT 152 X10'3 (140-440); RED BLOOD COUNT 3.37 X10'6 (4.20-5.60); RED CELL DISTRIBUTION WIDTH 16.1 % (11.5-14.5); WHITE BLOOD COUNT 16.3 X10'3 (4.5-11.0)
[2019-07-20 02:49] LABS: ALANINE AMINOTRANSFERASE 61 U/L (12-78); ALBUMIN 2.1 G/DL (3.4-5.0); ALBUMIN/GLOBULIN RATIO 0.7 (1.1-1.5); ALKALINE PHOSPHATASE 97 IU/L (46-116); ANION GAP 10 (8-16); ASPARTATE AMINO TRANSFERASE 41 U/L (10-37); BILIRUBIN,TOTAL 0.9 MG/DL (0.1-1.0); BLOOD UREA NITROGEN 52 MG/DL (7-18); BUN/CREATININE RATIO 59.1 (6.6-38.0); CALCIUM 7.7 MG/DL (8.5-10.1); CHLORIDE 109 MMOL/L (99-107); CREATININE 0.88 MG/DL (0.40-0.90); GLUCOSE 225 MG/DL (70-104); MAGNESIUM 1.7 MG/DL (1.5-2.4); SODIUM 145 MMOL/L (135-145); TOTAL PROTEIN 5.2 G/DL (6.4-8.2); TRIGLYCERIDES 270 MG/DL (20-135); eGFR 67 ML/MIN
[2019-07-20] MEDS: ipratropium/albuterol 3ml nebule NEB SCH ×3 (03:26→10:58)
[2019-07-20 03:55] LABS: ABG BASE EXCESS 5.3 mmol/L (-2.0-3.0); ABG HCO3 26.2 mmol/L (22.0-26.0); ABG OXYGEN SATURATION 97.5 % (95-98); ABG PCO2 (T) 28.3 mmHg (35.0-45.0); ABG PH (T) 7.588 (7.350-7.450); ABG PO2 (T) 91.9 mmHg (83-108); ALLEN'S TEST POSITIVE; FCOHb 0.1 % (0.5-1.5); FMetHb 0.3 % (0.3-1.12); FO2Hb 97.1 % (94-100); RESPIRATORY RATE 12 b/min; TOTAL HEMOGLOBIN 11.5 G/dl (12.0-16.0)
--- NOTE | 2019-07-20 04:10 | NUR ---
Vent circuit changed out again due to blood in circuit Addendum: 07/20/19 at 0538 by Jerrica Maier RT Amended: Links added.
[2019-07-20] MEDS: potassium Cl 20mEq/100mL bag 100 ML IV PRN ×4 (04:38→11:16)
--- NOTE | 2019-07-20 06:28 | NUR ---
Problems reprioritized. Patient report given, questions answered & plan of care reviewed with Elisha FELICIANO.
--- NOTE | 2019-07-20 06:30 | NUR ---
Patient in room CICU 2012. I have received report from Emma FELICIANO and had the opportunity to ask questions and assume patient care. Patient laying in bed with eyes closed, patient postures decerebrate with any stimulation, on ventilator 35% fio2 peep of 5 sating 98%, rivers and rectal tube to gravity, vital signs stable no signs or symptoms of distress will continue to monitor
[2019-07-20 07:26] LABS: ABG BASE EXCESS 4.6 mmol/L (-2.0-3.0); ABG HCO3 28.2 mmol/L (22.0-26.0); ABG OXYGEN SATURATION 96.4 % (95-98); ABG PCO2 (T) 38.3 mmHg (35.0-45.0); ABG PH (T) 7.485 (7.350-7.450); ABG PO2 (T) 84.5 mmHg (83-108); ALLEN'S TEST Yes; FCOHb 0.3 % (0.5-1.5); FMetHb 0.3 % (0.3-1.12); FO2Hb 95.8 % (94-100); RESPIRATORY RATE 14 b/min; TIDAL VOLUME 450 mL
[2019-07-20] MEDS: amiodarone 200mg tablet PO SCH (07:39)
[2019-07-20] MEDS: pantoprazole 40 MG vial IV SCH (07:39)
[2019-07-20] MEDS: mineral oil/petrolatum, white cream 113gm jar TP SCH (07:39)
[2019-07-20] MEDS: lactobacillus rhamnosus 10,000 MMU CELLS/CAPSULE CORPAK SCH (07:39)
[2019-07-20] MEDS: furosemide 40mg/4ml inj IV SCH (07:39)
[2019-07-20] MEDS: dexamethasone 4mg/ml inj IV SCH (07:39)
[2019-07-20] MEDS: K, MAG and/or Phos replacement - Verify level? MC SCH (07:43)
[2019-07-20 10:31] LABS: HEMATOCRIT 27.3 % (35.0-45.0); HEMOGLOBIN 8.7 g/dl (12.0-16.0); MEAN CORPUSCULAR HEMOGLOBIN 28.4 PG (27.0-31.0); MEAN CORPUSCULAR VOLUME 88.6 FL (78-98); MEAN PLATELET VOLUME 8.7 FL (7.4-10.4); PLATELET COUNT 142 X10'3 (140-440); RED BLOOD COUNT 3.07 X10'6 (4.20-5.60); RED CELL DISTRIBUTION WIDTH 16.1 % (11.5-14.5); WHITE BLOOD COUNT 13.7 X10'3 (4.5-11.0)
[2019-07-20] MEDS: scopolamine 1.5mg patch.TD72 TD SCH (13:37)
--- NOTE | 2019-07-20 15:38 | NUR ---
Called Daniellajacqueline talked to Ahmet RN gave report on patient, Neuro: posturing decerebrate Cardiac: SR/SB Resp: Bilateral upper shankar corse, bilateral lower shankar diminished on ventilator 35% fio2 peep of 5, Tvol 450, rate 14 mode A/C PRVC GI:rectal tube in place GI:rivers in place Skin: LLE cellulitis (chronic), lower lip has a wound, and sacrum is red but blanchable Lines: R PICC Drips: TKO Diet: Vital HP 95/ml hour which is goal no water flushes no drains Abnormal labs K+ 3.0 (replaced per protocol) Surgeries: 07/13 trach and Peg 07/19 bronchoscopy no findings Gave contact information of Daughter Rafaela called son Chayo and informed him that his mother was on her way to [facility] going to room 272B, tried to Call Earl Rafaela but she was un reachable Answered all questions Patient picked up by [facility] 3 bags of belongings sent with them, and two bottles of ucerin cream
[2019-07-21] MEDS ORDERED: VANCOMYCIN LEVEL IV ONE (11:30)
== END 2019-07-20 15:43 | DRG 5 ==
LOC: ER 15:35 → CICU 2S 22:01 → CMPBEDREQ 06-28 19:48
PROVIDERS: ADMIT Internal Medicine Critical Care Medicine; ATTEND Internal Medicine Critical Care Medicine
PROC: 5A1955Z Respiratory Ventilation, Greater than 96 Consecutive Hours (ICD-10-PCS; 2019-06-25)
PROC: 0BH17EZ Insertion of Endotracheal Airway into Trachea, Via Natural or Artificial Opening (ICD-10-PCS; 2019-06-25)
PROC: 4A00X4Z Measurement of Central Nervous Electrical Activity, External Approach (ICD-10-PCS; principal; 2019-07-05)
PROC: 02HV33Z Insertion of Infusion Device into Superior Vena Cava, Percutaneous Approach (ICD-10-PCS; 2019-07-05)
PROC: 4A02X4A Measurement of Cardiac Electrical Activity, Guidance, External Approach (ICD-10-PCS; 2019-07-05)
PROC: 5A1955Z Respiratory Ventilation, Greater than 96 Consecutive Hours (ICD-10-PCS; 2019-07-08)
PROC: 5A09357 Assistance with Respiratory Ventilation, Less than 24 Consecutive Hours, Continuous Positive Airway Pressure (ICD-10-PCS; 2019-07-08)
PROC: 0BH17EZ Insertion of Endotracheal Airway into Trachea, Via Natural or Artificial Opening (ICD-10-PCS; 2019-07-08)
PROC: 0B113F4 Bypass Trachea to Cutaneous with Tracheostomy Device, Percutaneous Approach (ICD-10-PCS; 2019-07-13)
PROC: 4A00X4Z Measurement of Central Nervous Electrical Activity, External Approach (ICD-10-PCS; 2019-07-13)
PROC: 0D963ZZ Drainage of Stomach, Percutaneous Approach (ICD-10-PCS; 2019-07-13)
PROC: 4A00X4Z Measurement of Central Nervous Electrical Activity, External Approach (ICD-10-PCS; 2019-07-15)
PROC: 0BJ08ZZ Inspection of Tracheobronchial Tree, Via Natural or Artificial Opening Endoscopic (ICD-10-PCS; 2019-07-19)
PROC: B52 Imaging, Veins, Computerized Tomography (CT Scan) (ICD-10-PCS; 2019-07-19)
DX: A41.9 Sepsis, unspecified organism (principal); G93.40 Encephalopathy, unspecified; N17.9 Acute kidney failure, unspecified; J18.9 Pneumonia, unspecified organism; I11.0 Hypertensive heart disease with heart failure; I50.9 Heart failure, unspecified; E66.01 Morbid (severe) obesity due to excess calories; L03.116 Cellulitis of left lower limb; F14.90 Cocaine use, unspecified, uncomplicated; J45.909 Unspecified asthma, uncomplicated; J96.00 Acute respiratory failure, unspecified whether with hypoxia or hypercapnia; E11.9 Type 2 diabetes mellitus without complications; F17.210 Nicotine dependence, cigarettes, uncomplicated; F15.90 Other stimulant use, unspecified, uncomplicated; Z88.6 Allergy status to analgesic agent; Z88.8 Allergy status to other drugs, medicaments and biological substances; Z90.49 Acquired absence of other specified parts of digestive tract; Z98.51 Tubal ligation status; Z68.41 Body mass index [BMI] 40.0-44.9, adult
CPT/HCPCS: 31500; 31635; 31645; 36415; 36556; 36573; 36600; 49440; 70450; 70496; 70542; 70544; 70547; 70551; 71045; 71260; 73720; 74018; 76937; 80053; 80202; 80305; 80320; 81001; 81003; 82140; 82550; 82570; 82803; 82810; 82948; 83036; 83605; 83735; 83880; 84100; 84132; 84134; 84145; 84300; 84439; 84443; 84478; 84484; 85018; 85025; 85027; 85379; 85384; 85610; 85730; 86885; 86900; 86901; 87040; 87070; 87077; 87081; 87088; 87185; 87186; 87207; 92950; 93005; 93306; 94002; 94003; 94640; 94760; 95816; 99291; 99292; A4618; A7000; A7521; A9585; B4087; C1713; C1729; C1894; C9113; G0378; J0131; J0171; J0282; J0330; J0692; J0694; J0696; J1100; J1250; J1610; J1650; J1720; J1815; J1940; J1956; J2250; J2704; J2997; J3010; J3370; J3480; J3490; J7050; Q9963; Q9967